=== PATIENT | female | born 1955 | race Caucasian/White ===

== ENCOUNTER 2019-01-15 14:20 | Inpatient (IN) | payer MEDICARE, OTHER | END 2019-01-18 13:40 | disposition other institution (70) | LOC: ER 14:20 → 4TH 18:00 | DX: A41.9 Sepsis, unspecified organism (principal); N13.6 Pyonephrosis; I16.0 Hypertensive urgency; J96.01 Acute respiratory failure with hypoxia; G47.33 Obstructive sleep apnea (adult) (pediatric); Z68.43 Body mass index [BMI] 50.0-59.9, adult; E66.01 Morbid (severe) obesity due to excess calories; R35.0 Frequency of micturition; J44.9 Chronic obstructive pulmonary disease, unspecified; F17.210 Nicotine dependence, cigarettes, uncomplicated; I89.0 Lymphedema, not elsewhere classified; I49.3 Ventricular premature depolarization; I45.10 Unspecified right bundle-branch block ==

== ENCOUNTER 2019-02-02 15:19 | Inpatient (IN) | payer MEDICARE ==
[~2019-02-02] VITALS: Ht 170 cm; Wt 161.9 kg
[~2019-02-02 15:19] MED LIST: ASPI-983 PO; CEFD300C3 PO; LISI-552 PO; NAPR220T66 PO
--- NOTE | 2019-02-02 15:41 | ED GI ---
General Chief Complaint: Rect Problems Stated Complaint: RECTAL BLEEDING Nursing Triage Note: Patient reports bright red blood coming from rectum starting this morning. Sepsis Screen: No Definite Risk Source of Information: Patient Exam Limitations: No Limitations History of Present Illness Date Seen by Provider: Feb 02, 2019 Time Seen by Provider: 15:36 Initial Comments To ER by private vehicle with reports of bright red blood per rectum onset this morning. She had a formed soft bowel movement that had some blood on it. Since then she's been passing large amounts of bright red blood clots per rectum. She denies pain She was here recently () for ureteral stone/obstruction, still has a ureteral stent in place. She is tachycardic on arrival at [facility] but not hypotensive. Last hemoglobin on 01/18/19 was 13.6. She just moved here from [place] and does not have a local physician. She is not on anticoagulants. She just finished Omnicef yesterday for the pyelonephritis but denies any diarrhea or abdominal cramping. Timing/Duration: 1-3 Hours Severity/Quality: Moderate Radiation: No Radiation Activities at Onset: None Allergies and Home Medications Allergies Coded Allergies: No Known Drug Allergies (Unverified , 01/15/19) Home Medications Aspirin 81 Mg Tablet.dr, 81 MG PO DAILY, (Reported) Cefdinir 300 Mg Capsule, 300 MG PO BID Prescribed by: ANITA MARCIAL on 01/18/19 1211 Lisinopril 20 Mg Tablet, 20 MG PO DAILY@0900 Prescribed by: ANITA MARCIAL on 01/18/19 1328 Naproxen Sodium 220 Mg Tablet, 880 MG PO Q48H, (Reported) TAKES 4 (220MG) TABLETS Patient Home Medication List Home Medication List Reviewed: Yes Review of Systems Review of Systems Constitutional: see HPI; No chills, No fever, No weakness EENTM: No Symptoms Reported Respiratory: No Symptoms Reported Cardiovascular: No Symptoms Reported Gastrointestinal: See HPI, Rectal Bleeding Genitourinary: No Symptoms Reported Musculoskeletal: no symptoms reported Skin: no symptoms reported Psychiatric/Neurological: No Symptoms Reported Endocrine: No Symptoms Reported Hematologic/Lymphatic: No Symptoms Reported Past Kqfudgc-Jgyxyz-Tosgid Hx Patient Social History Alcohol Use: Denies Use Recreational Drug Use: No Type Used: Cigarettes Recent Foreign Travel: No Contact w/Someone Who Travel: No Recent Infectious Disease Expo: No Recent Hopitalizations: No Seasonal Allergies Seasonal Allergies: No Past Medical History Surgeries: No COPD Cardiac: Yes Hypertension Neurological: No Genitourinary: No Gastrointestinal: No Endocrine: No Cancer: No Psychosocial: No Integumentary: Yes (LYMPHADEMA) Family Medical History Alzheimer's disease 19 MOTHER GRANDMOTHER Cardiovascular disease 19 FATHER Diabetes mellitus G8 SISTER Hypertension 19 FATHER G8 BROTHER Myocardial infarction G8 BROTHER Neoplasm AUNT GRANDMOTHER No Pertinent Family Hx Physical Exam Vital Signs Vital Signs - First Documented 02/02/19 15:29 Temp 37.2 Pulse 122 Resp 18 B/P (MAP) 189/93 (125) Capillary Refill : Less Than 3 Seconds Height/Weight/BMI Height: 5'6.00" Weight: 352lbs. 0.0oz. 159.419379ev; 55.00 BMI Method:Estimated General Appearance: WD/WN, no apparent distress, obese HEENT: PERRL/EOMI, normal ENT inspection Respiratory: no respiratory distress, no accessory muscle use Gastrointestinal: normal bowel sounds, soft, other (bright red blood with clots in her brief, no external source of bleeding seen on rectal exam) Extremities: normal range of motion, non-tender Neurologic/Psychiatric: alert, normal mood/affect, oriented x 3 Skin: normal color, warm/dry Progress/Results/Core Measures Results/Orders Lab Results Laboratory Tests Test 02/02/19 15:38 Range/Units White Blood Count 10.5 4.3-11.0 10^3/uL Red Blood Count 4.32 L 4.35-5.85 10^6/uL Hemoglobin 13.0 11.5-16.0 G/DL Hematocrit 40 35-52 % Mean Corpuscular Volume 92 80-99 FL Mean Corpuscular Hemoglobin 30 25-34 PG Mean Corpuscular Hemoglobin Concent 33 32-36 G/DL Red Cell Distribution Width 16.4 H 10.0-14.5 % Platelet Count 278 130-400 10^3/uL Mean Platelet Volume 11.2 H 7.4-10.4 FL Neutrophils (%) (Auto) 77 H 42-75 % Lymphocytes (%) (Auto) 14 12-44 % Monocytes (%) (Auto) 6 0-12 % Eosinophils (%) (Auto) 2 0-10 % Basophils (%) (Auto) 1 0-10 % Neutrophils # (Auto) 8.1 H 1.8-7.8 X 10^3 Lymphocytes # (Auto) 1.5 1.0-4.0 X 10^3 Monocytes # (Auto) 0.7 0.0-1.0 X 10^3 Eosinophils # (Auto) 0.2 0.0-0.3 10^3/uL Basophils # (Auto) 0.1 0.0-0.1 10^3/uL Prothrombin Time 13.3 12.2-14.7 SEC INR Comment 1.0 0.8-1.4 Activated Partial Thromboplast Time 28 24-35 SEC Sodium Level 139 135-145 MMOL/L Potassium Level 3.8 3.6-5.0 MMOL/L Chloride Level 107 98-107 MMOL/L Carbon Dioxide Level 22 21-32 MMOL/L Anion Gap 10 5-14 MMOL/L Blood Urea Nitrogen 18 7-18 MG/DL Creatinine 0.74 0.60-1.30 MG/DL Estimat Glomerular Filtration Rate > 60 BUN/Creatinine Ratio 24 Glucose Level 108 H 70-105 MG/DL Calcium Level 8.9 8.5-10.1 MG/DL Corrected Calcium 9.5 8.5-10.1 MG/DL Total Bilirubin 0.4 0.1-1.0 MG/DL Aspartate Amino Transf (AST/SGOT) 20 5-34 U/L Alanine Aminotransferase (ALT/SGPT) 24 0-55 U/L Alkaline Phosphatase 69 40-136 U/L Total Protein 6.5 6.4-8.2 GM/DL Albumin 3.2 3.2-4.5 GM/DL My Orders Orders - FABIANO HI LABORER PETROLE[employer] REFINERY Cbc With Automated Diff (02/02/19 15:34) Comprehensive Metabolic Panel (02/02/19 15:34) Ed Iv/Invasive Line Start (02/02/19 15:34) Protime With Inr (02/02/19 15:34) Partial Thromboplastin Time (02/02/19 15:34) Red Cells Leukocytes Reduced (02/02/19 15:34) Type And Screen (02/02/19 15:34) Ct Abdomen/Pelvis W (02/02/19 15:54) Iohexol Injection (Omnipaque 350 Mg/Ml 1 (02/02/19 16:45) Received Contrast (Hold Metformin- Contr (02/02/19 16:45) Ns (Ivpb) (Sodium Chloride 0.9% Ivpb Bag (02/02/19 16:45) Medications Given in ED Current Medications Medications Dose Ordered Sig/Zhang Route Start Time Stop Time Status Last Admin Dose Admin Iohexol 100 ml ONCE ONCE IV 02/02/19 16:45 02/02/19 16:46 DC 02/02/19 16:40 100 ML Sodium Chloride 100 ml ONCE ONCE IV 02/02/19 16:45 02/02/19 16:46 DC 02/02/19 16:40 80 ML Vital Signs/I&O 02/02/19 15:29 Temp 37.2 Pulse 122 Resp 18 B/P (MAP) 189/93 (125) Blood Pressure Mean: 125 Departure Communication (Admissions) Time/Spoke to Admitting Phy: 17:[address] Marcial, who agrees to admit, hydralazine 10 mg IV every 8 hours when necessary systolic pressure greater than 180. We'll check stools for C. difficile since she is just finishing antibiotics. Consult Dr. Marquez. Hemoglobin is stable, blood pressure is stable, however this is only minimally going on for about 2-3 hours, the volume of bleeding seems to be increasing, she had a large passage of blood per rectum onto the floor in her room, lots of clot, an impressive amount of bleeding. She is crossmatched for 3 units of blood. She still denies pain. Alert and oriented. Spoke with Dr. Marquez, tentative plan for colonoscopy tomorrow morning at 9 AM after 2 bottles of magnesium citrate today Impression Primary Impression: Lower GI hemorrhage Disposition: ADMITTED INPATIENT Condition: Stable Admissions Decision to Admit Reason: Admit from ER (General) Decision to Admit/Date: Feb 02, 2019 Time/Decision to Admit Time: 17:20 Departure-Patient Inst. Referrals: NO,LOCAL PHYSICIAN (PCP/Family) Primary Care Physician FABIANO HI APRN Feb 02, 2019 15:41
[2019-02-02 16:09] LABS: BASOPHILS # (AUTO) 0.1 10^3/uL (0.0-0.1); BASOPHILS % (AUTO) 1 % (0-10); EOSINOPHILS # (AUTO) 0.2 10^3/uL (0.0-0.3); EOSINOPHILS % (AUTO) 2 % (0-10); HEMATOCRIT 40 % (35-52); LYMPHOCYTES # (AUTO) 1.5 X 10^3 (1.0-4.0); LYMPHOCYTES % (AUTO) 14 % (12-44); MEAN CORPUSCULAR HEMOGLOBIN 30 PG (25-34); MEAN CORPUSCULAR HGB CONC 33 G/DL (32-36); MEAN CORPUSCULAR VOLUME 92 FL (80-99); MEAN PLATELET VOLUME 11.2 FL (7.4-10.4); MONOCYTES # (AUTO) 0.7 X 10^3 (0.0-1.0); MONOCYTES % (AUTO) 6 % (0-12); NEUTROPHILS # (AUTO) 8.1 X 10^3 (1.8-7.8); NEUTROPHILS % (AUTO) 77 % (42-75); PLATELET COUNT 278 10^3/uL (130-400); RED CELL DISTRIBUTION WIDTH 16.4 % (10.0-14.5); WHITE BLOOD COUNT 10.5 10^3/uL (4.3-11.0)
[2019-02-02 16:26] LABS: PROTHROMBIN TIME PATIENT 13.3 SEC (12.2-14.7)
[2019-02-02 16:36] LABS: ALANINE AMINOTRANSFERASE 24 U/L (0-55); ALBUMIN 3.2 GM/DL (3.2-4.5); ALKALINE PHOSPHATASE 69 U/L (40-136); BILIRUBIN,TOTAL 0.4 MG/DL (0.1-1.0); BUN/CREATININE RATIO 24; CALCIUM 8.9 MG/DL (8.5-10.1); CARBON DIOXIDE 22 MMOL/L (21-32); CHLORIDE 107 MMOL/L (98-107); CREATININE SERUM 0.74 MG/DL (0.60-1.30); GFR ESTIMATED > 60; GLUCOSE 108 MG/DL (70-105); POTASSIUM 3.8 MMOL/L (3.6-5.0); SODIUM 139 MMOL/L (135-145); TOTAL PROTEIN 6.5 GM/DL (6.4-8.2)
[2019-02-02] MEDS ORDERED: NS 100 ML (IVPB) BAG IV ONE (16:45)
[2019-02-02] MEDS ORDERED: IOHEXOL 350 MG/ML 100 ML (OMNIPAQUE 350) VIAL IV ONE (16:45)
[2019-02-02] MEDS ORDERED: HOLD METFORMIN - RECEIVED CONTRAST 20 ML VIAL IV SCH (16:45)
--- NOTE | 2019-02-02 16:56 | Diagnostic Imaging Report ---
PROCEDURE: CT abdomen and pelvis with contrast. TECHNIQUE: Multiple contiguous axial images were obtained through the abdomen and pelvis after administration of intravenous contrast. Auto Exposure Controls were utilized during the CT exam to meet ALARA standards for radiation dose reduction. INDICATION: Rectal bleeding. COMPARISON: 01/15/2019 FINDINGS: Mild bibasilar atelectasis. Tiny hiatal hernia. The liver and spleen are unremarkable. Nonobstructing right renal calculi are again identified, stable from prior examination. The right kidney and right ureter are otherwise unremarkable. A left ureteral stent is now in place with the distal tip extending into the urinary bladder with the proximal aspect coiled within the superior pole of the left kidney. 1.5 cm calculus within the left renal pelvis is again identified. Multiple additional left renal calculi are also present. There is, however, no evidence of hydroureteronephrosis with the left ureteral stent in place. Mild scattered vascular calcifications without aneurysmal dilatation of the abdominal aorta. Stable 2.5 cm left adrenal gland nodule. The right adrenal gland is unremarkable. The gallbladder is unremarkable. Diastases of the rectus abdominal musculature. Gas is present within the urinary bladder. The urinary bladder is predominantly decompressed. The uterus and adnexal structures are unremarkable. Mild colonic diverticulosis without CT evidence of diverticulitis. Appendix is unremarkable. No bowel obstruction or pneumatosis. Mildly prominent lymph node within the anterior right thigh, stable from the prior examination. No new adenopathy. No free air or free fluid. Stable appearance of the left hip with presumed chronic proximal left femoral fracture with resulting severe end-stage degenerative changes of the left hip. No acute osseous abnormality with scattered osseous degenerative changes. IMPRESSION: Left-sided ureteral stent is in place without evidence of hydroureteronephrosis. Bilateral renal calculi are again identified. Gas within urinary bladder. This may simply relate to recent instrumentation, though gas-forming organism could be considered. Recommend correlation with urinary analysis. Stable appearance of the left hip with resulting severe end-stage degenerative changes. Stable left adrenal gland nodule, which is indeterminate, though may relate to an adenoma. Comparison to prior imaging would be beneficial. If no prior imaging is available, a followup CT of the abdomen without contrast would be recommended in 3-6 months. Additional stable findings as above. Dictated by: Dictated on workstation # [id number]
[2019-02-02] MEDS ORDERED: hydrALAZINE (APESOLINE) 20 MG/ML VIAL IV ONE (17:30)
[2019-02-02 18:43] VITALS: BP 136/90
[2019-02-02] MEDS ORDERED: ONDANSETRON 4 MG/2 ML (SDV) Z0FRAN IVP PRN (19:00)
[2019-02-02] MEDS ORDERED: MAGNESIUM CITRATE 300 ML BTL PO ONE (19:00)
[2019-02-02] MEDS ORDERED: hydrALAZINE (APESOLINE) 20 MG/ML VIAL IV PRN (19:00)
[2019-02-02 19:15] VITALS: BP 151/76
[2019-02-02] MEDS: NS IV 1000 ML 1,000 ML IV SCH (19:31)
[2019-02-02 20:00] VITALS: BP 153/91
[2019-02-02 21:00] VITALS: BP 146/74
--- NOTE | 2019-02-02 21:35 | CONSULTATION REPORT ---
DATE OF SERVICE: HISTORY OF PRESENT ILLNESS: The patient is a 63-year-old female, who presented to the Emergency Department with rectal bleeding. She reports that this morning she had normal formed stools; however, this was followed by red clots of blood. She states that she has not had this before in the past. Upon presentation to the Emergency Department, she did have several more episodes of clotted red blood per rectum. She does not report any abdominal pain and does not report any major issues with diarrhea nor constipation. She also does not report any nausea nor vomiting. Her hemoglobin is stable. She does have a history of nephrolithiasis as well as pyelonephritis and has been on antibiotics on an intermittent basis for this. A CT scan was performed, which did show a small left adrenal incidentaloma 2.5 cm in size, which appears to be nonfunctional. She also was found to have diverticulosis. There were no inflammatory changes of the gastrointestinal tract. She does not report any family history of colon cancer. PAST MEDICAL HISTORY: Hypertension, COPD, nephrolithiasis, pyelonephritis, bilateral lower extremity edema. PAST SURGICAL HISTORY: None. ALLERGIES: No known drug allergies. MEDICATIONS: Aspirin 81 mg daily, cefdinir 300 mg b.i.d., lisinopril 20 mg daily, naproxen p.r.n. SOCIAL HISTORY: Positive smoke, negative alcohol. FAMILY HISTORY: Father, hypertension. Brother, myocardial infarction. Sister, diabetes. VITAL SIGNS: Temperature 37.2, pulse 105, blood pressure 153/91, respirations 25, pulse ox 96% on room air. REVIEW OF SYSTEMS: Well-nourished female, currently in no acute distress. She is not experiencing any shortness of breath and difficulty in breathing. No chest pain, palpitations, or diaphoresis. No nausea, vomiting with formed stools earlier today, which was followed by several episodes of clotted red blood per rectum. No abdominal pain, no fever, no chills. No recent inadvertent weight loss. All other review of systems negative. PHYSICAL EXAMINATION: CHEST: Distant breath sounds bilaterally with few scattered rales. HEART: Regular, no murmurs. EXTREMITIES: A+2/3 bilateral lower extremity edema, negative Homans sign. HEENT: No scleral icterus. NECK: No cervical lymphadenopathy. ABDOMEN: Soft, nontender, nondistended. No palpable masses. No hernias. SKIN: Warm, dry. LABORATORY DATA: WBC 10.5, hemoglobin 13.0, hematocrit 40, platelets 278, BUN 18, creatinine 0.74. Liver function enzymes are normal. ASSESSMENT AND PLAN: A 63-year-old female with rectal bleeding. This may be due to internal hemorrhoids as well as the possibility of a diverticular bleed. She also does not report any signs of colitis, which would normally present with crampy abdominal pain as well as diarrhea; however, she has been on antibiotics numerous times for pyelonephritis as well as nephrolithiasis. We cannot rule out the possibility of some form of colitis including bacterial overgrowth as well as an ischemic colitis. We will proceed with a colonoscopy as well as biopsies as appropriate on this admission. Job ID: [id number] DocumentID: [id number] Dictated Date: 02/02/2019 21:03:18 Electric Motor Control Assembler Date: 02/02/2019 21:34:28 Dictated By: BERONICA LOYD MD MTDD
[2019-02-02 22:00] VITALS: BP 113/76
[2019-02-03] VITALS (21 sets, daily range): BP systolic 125–187; BP diastolic 61–94
[2019-02-03 03:27] LABS: BASOPHILS # (AUTO) 0.1 10^3/uL (0.0-0.1); BASOPHILS % (AUTO) 1 % (0-10); EOSINOPHILS # (AUTO) 0.3 10^3/uL (0.0-0.3); EOSINOPHILS % (AUTO) 3 % (0-10); HEMATOCRIT 38 % (35-52); HEMOGLOBIN 12.1 G/DL (11.5-16.0); LYMPHOCYTES # (AUTO) 1.6 X 10^3 (1.0-4.0); LYMPHOCYTES % (AUTO) 15 % (12-44); MEAN CORPUSCULAR HEMOGLOBIN 30 PG (25-34); MEAN CORPUSCULAR HGB CONC 32 G/DL (32-36); MEAN CORPUSCULAR VOLUME 93 FL (80-99); MEAN PLATELET VOLUME 11.2 FL (7.4-10.4); MONOCYTES # (AUTO) 0.7 X 10^3 (0.0-1.0); MONOCYTES % (AUTO) 7 % (0-12); NEUTROPHILS % (AUTO) 74 % (42-75); PLATELET COUNT 299 10^3/uL (130-400); RED CELL DISTRIBUTION WIDTH 16.6 % (10.0-14.5); WHITE BLOOD COUNT 10.8 10^3/uL (4.3-11.0)
[2019-02-03 04:01] LABS: BUN/CREATININE RATIO 20; CALCIUM 8.8 MG/DL (8.5-10.1); CARBON DIOXIDE 25 MMOL/L (21-32); CHLORIDE 107 MMOL/L (98-107); CREATININE SERUM 0.64 MG/DL (0.60-1.30); GFR ESTIMATED > 60; GLUCOSE 99 MG/DL (70-105); MAGNESIUM 2.3 MG/DL (1.6-2.4); PHOSPHORUS 2.9 MG/DL (2.3-4.7); POTASSIUM 3.8 MMOL/L (3.6-5.0); SODIUM 139 MMOL/L (135-145)
[2019-02-03] MEDS ORDERED: POTASSIUM CL 10MEQ/50ML IVPB 50 ML IV SCH (06:00)
[2019-02-03] MEDS ORDERED: KCL 20 MEQ TAB (K-DUR) PO SCH (06:00)
[2019-02-03] MEDS ORDERED: MAGNESIUM 1 GM/100 ML IVPB 100 ML IV SCH (06:00)
[2019-02-03] MEDS: NS IV 1000 ML 1,000 ML IV SCH (06:10)
--- NOTE | 2019-02-03 06:48 | Pulmonary Consultation ---
History of Present Illness History of Present Illness Date of Consultation 02/03/19 06:46 Date of Admission Allergies and Home Medications Allergies Coded Allergies: No Known Drug Allergies (Unverified , 01/15/19) Home Medications Aspirin 81 Mg Tablet.dr, 81 MG PO DAILY, (Reported) Cefdinir 300 Mg Capsule, 300 MG PO BID Prescribed by: ANITA MARCIAL on 01/18/19 1211 Lisinopril 20 Mg Tablet, 20 MG PO DAILY@0900 Prescribed by: ANITA MARCIAL on 01/18/19 1328 Naproxen Sodium 220 Mg Tablet, 880 MG PO Q48H, (Reported) TAKES 4 (220MG) TABLETS Past Ervrqkc-Mvdhui-Vnydnj Hx Patient Social History Alcohol Use: Denies Use Recreational Drug Use: No Type Used: Cigarettes Recent Foreign Travel: No Contact w/Someone Who Travel: No Recent Infectious Disease Expo: No Recent Hopitalizations: No Physical Abuse: No Sexual Abuse: No Seasonal Allergies Seasonal Allergies: No Past Medical History Surgeries: No COPD Cardiac: Yes Hypertension Neurological: No Genitourinary: No Gastrointestinal: No Endocrine: No Cancer: No Psychosocial: No Integumentary: Yes (LYMPHADEMA) Family Medical History Alzheimer's disease 19 MOTHER GRANDMOTHER Cardiovascular disease 19 FATHER Diabetes mellitus G8 SISTER Hypertension 19 FATHER G8 BROTHER Myocardial infarction G8 BROTHER Neoplasm AUNT GRANDMOTHER No Pertinent Family Hx Sepsis Event Evaluation Height, Weight, BMI Height: 5'6.00" Weight: 350lbs. 9.0oz. 159.052650dk; 56.29 BMI Method:Estimated Exam Exam Vital Signs Date Time Temp Pulse Resp B/P (MAP) Pulse Ox O2 Delivery O2 Flow Rate FiO2 02/03/19 06:00 93 18 158/78 (104) 98 Room Air 02/03/19 05:00 80 15 145/94 (111) 96 Room Air 02/03/19 04:50 36.5 02/03/19 04:48 99 Room Air 02/03/19 04:00 93 16 168/75 (106) 98 Room Air 02/03/19 03:00 97 17 169/80 (109) 98 Room Air 02/03/19 02:00 97 18 175/91 (119) 97 Room Air 02/03/19 01:00 92 15 166/92 (116) 96 Room Air 02/03/19 01:00 91 02/03/19 00:50 99 Room Air 02/03/19 00:20 37.0 02/03/19 00:00 109 21 143/74 (97) 98 Room Air 02/02/19 23:00 118 12 98 Room Air 02/02/19 22:00 95 20 113/76 (88) 97 Room Air 02/02/19 21:00 102 15 146/74 (98) 99 Room Air 02/02/19 20:45 99 Room Air 02/02/19 20:00 105 25 153/91 (111) 96 Room Air 02/02/19 19:32 95 Room Air 02/02/19 19:15 118 18 151/76 (101) 98 Room Air 02/02/19 18:43 103 27 136/90 (105) 97 Room Air 02/02/19 18:40 101 02/02/19 18:02 37.2 101 18 145/77 (125) 98 02/02/19 15:29 37.2 122 18 189/93 (125) I & O 02/03/19 07:00 Intake Total 300 ml Balance 300 ml Height & Weight Height: 5'6.00" Weight: 350lbs. 9.0oz. 159.810809rk; 56.29 BMI Method:Estimated Capillary Refill: Less Than 3 Seconds Gastrointestinal: normal bowel sounds, soft, other (bright red blood with clots in her brief, no external source of bleeding seen on rectal exam) Results Lab Laboratory Tests 02/02/19 15:38 02/02/19 22:10 02/03/19 03:14 Assessment/Plan Assessment/Plan Rectal bleeding -Monitor H&H -surgery following -plan is for colonoscopy Nephrolithiasis with stent in place LIDIA MISHRA DO Feb 03, 2019 06:48
--- NOTE | 2019-02-03 08:45 | NUR ---
Endo nurse here to take pt to colonoscopy per wheelchair. Pt will go to room 417 when done with colonoscopy.
[2019-02-03] MEDS ORDERED: MIDAZOLAM 2 MG/2 ML (VERSED) VIAL ONE ×3 (09:25)
[2019-02-03] MEDS ORDERED: NS IV 500 ML 500 ML ONE (09:25)
[2019-02-03] MEDS ORDERED: fentaNYL INJECTION 100 MCG/2 ML AMP ONE (09:25)
[2019-02-03] MEDS ORDERED: ONDANSETRON 4 MG (ZOFRAN) ORAL DISSOLVE TAB PO PRN (09:45)
[2019-02-03] MEDS ORDERED: ACETAMINOPHEN 325 MG TABLET PO PRN (09:45)
[2019-02-03] MEDS ORDERED: POLYETHYLENE GLYCOL 17 GM (MIRALAX) PACK PO PRN (09:45)
[2019-02-03] MEDS ORDERED: MELATONIN 3 MG TABLET PO PRN (09:45)
[2019-02-03] MEDS ORDERED: hydrALAZINE (APESOLINE) 20 MG/ML VIAL IV PRN (09:45)
[2019-02-03] MEDS ORDERED: diphenhydrAMINE 25 MG TAB (BENADRYL) PO PRN (09:45)
[2019-02-03] MEDS ORDERED: LIDOCAINE JELLY 2% 6 ML SYRINGE ONE (09:49)
[2019-02-03] MEDS ORDERED: proPOfol 200 MG/20 ML (DIPRIVAN) VIAL IV ONE ×2 (09:58→10:35)
[2019-02-03] MEDS ORDERED: MIDAZOLAM 2 MG/2 ML (VERSED) VIAL IVP ONE (10:00)
[2019-02-03] MEDS ORDERED: LIDOCAINE JELLY 2% 6 ML SYRINGE MM PRN (10:00)
[2019-02-03] MEDS ORDERED: NS IV 500 ML 500 ML IV ONE (10:00)
[2019-02-03] MEDS ORDERED: fentaNYL INJECTION 100 MCG/2 ML AMP IVP ONE (10:00)
--- NOTE | 2019-02-03 10:55 | Anesthesia-General Post-Op ---
MAC Patient Condition Mental Status/LOC: Same as Preop Cardiovascular: Satisfactory Nausea/Vomiting: Absent Respiratory: Satisfactory Pain: Controlled Complications: Absent Post Op Complications Complications None Follow Up Care/Instructions Patient Instructions None needed. Anesthesiology Discharge Order Discharge Order Patient is doing well, no complaints, stable vital signs, no apparent adverse anesthesia problems. No complications reported per nursing. TOO BALDWIN CRNA Feb 03, 2019 10:55
--- NOTE | 2019-02-03 10:57 | Progress Note-Pre Operative ---
Pre-Operative Progress Note H&P Reviewed The H&P was reviewed, patient examined and no changes noted. Date Seen by Provider: Feb 03, 2019 Time Seen by Provider: 09:00 Date H&P Reviewed: Feb 03, 2019 Time H&P Reviewed: 09:00 Pre-Operative Diagnosis: rectal bleed BERONICA LOYD MD Feb 03, 2019 10:57
--- NOTE | 2019-02-03 11:01 | Progress Note-Post Operative ---
Post-Operative Progess Note Surgeon (s)/[place] (s) Surgeon BERONICA LOYD MD [place]: none Pre-Operative Diagnosis rectal bleed Post-Operative Diagnosis chronic stage 2 ext and int hemorrhoids, moderate-severe sigmoid diverticulosis with previous bleed. Procedure & Operative Findings Date of Procedure 02/03/19 Procedure Performed/Findings colonoscopy Anesthesia Type mac Estimated Blood Loss Estimated blood loss (mL): minimal Specimens/Packing Specimens Removed none BERONICA LOYD MD Feb 03, 2019 11:01
--- NOTE | 2019-02-03 11:05 | NUR ---
RECEIVED FROM ENDO, REPORT RECEIVED FROM JOSELITO FIGUEREDO, PATIENT ALERT, IV SITE WITHOUT REDNESS OR SWELLING, UP IN CHAIR, FAMILY AT BEDSIDE, DEPENDS CHANGED, SEVERAL BLOOD CLOTS IN THE DEPENDS, DR LOYD INFORMED.
--- NOTE | 2019-02-03 11:22 | History & Physical-Hospitalist ---
History of Present Illness HPI/Chief Complaint Karli Solorio is a 63-year-old female with recent hospitalization due to urinary tract infection and nephrolithiasis and stent placement who presented with rectal bleeding. She reports that the bleeding started in yesterday and a she had a couple episodes before coming into the hospital. She is says that the bleeding has improved at this point. She denies any abdominal pain, nausea, or vomiting. She denies any fevers or chills. She denies any chest pain or shortness of breath. She has not had any ongoing dysuria. She denies any flank pain. She denies ever having any rectal bleeding before. She did not feel lightheaded or dizzy. Source: patient Exam Limitations: no limitations Date Seen 02/03/19 Time Seen by a Provider: 08:30 Attending Physician Mariam Marcial MD PCP No,Local Physician Referring Physician Date of Admission Feb 02, 2019 at 17:09 Home Medications & Allergies Home Medications Reviewed patient Home Medication Reconciliation performed by pharmacy medication reconciliations semiconductor lab technician and/or nursing. Patients Allergies have been reviewed. Allergies Allergies Coded Allergies No Known Drug Allergies (Unverified01/15/19) Past Nybubab-Itybrg-Xwcpeg Hx Past Med/Social Hx: Reviewed Nursing Past Med/Soc Hx Patient Social History Alcohol Use: Denies Use Recreational Drug Use: No Type Used: Cigarettes Recent Foreign Travel: No Contact w/other who traveled: No Recent Hopitalizations: No Recent Infectious Disease Expo: No Seasonal Allergies Seasonal Allergies: No Past Medical History Cardiac: Hypertension Family History Alzheimer's disease 19 MOTHER GRANDMOTHER Cardiovascular disease 19 FATHER Diabetes mellitus G8 SISTER Hypertension 19 FATHER G8 BROTHER Myocardial infarction G8 BROTHER Neoplasm AUNT GRANDMOTHER No Pertinent Family Hx Review of Systems Constitutional: no symptoms reported EENTM: no symptoms reported Respiratory: no symptoms reported Cardiovascular: no symptoms reported Gastrointestinal: No abdominal pain, No hematemesis, No melena, No nausea, No vomiting; other (Hematochezia) Genitourinary: no symptoms reported Musculoskeletal: no symptoms reported Skin: no symptoms reported Psychiatric/Neurological: No Symptoms Reported Physical Exam Physical Exam Vital Signs Vital Signs - First Documented 02/02/19 02/02/19 02/02/19 02/03/19 15:29 18:02 18:43 09:36 Temp 37.2 Pulse 122 Resp 18 B/P (MAP) 189/93 (125) Pulse Ox 98 O2 Delivery Room Air O2 Flow Rate 8 Capillary Refill : Less Than 3 Seconds Height, Weight, BMI Height: 5'6.00" Weight: 350lbs. 9.0oz. 159.785319uw; 56.29 BMI Method:Estimated General Appearance: No Apparent Distress, WD/WN, Obese HEENT: PERRL/EOMI, Pharynx Normal Neck: Normal Inspection, Supple Respiratory: Lungs Clear, Normal Breath Sounds, No Respiratory Distress Cardiovascular: Regular Rate, Rhythm, No Edema, No Murmur Gastrointestinal: Normal Bowel Sounds, Non Tender, Soft Back: No CVA Tenderness Extremity: Normal Inspection, Non Tender Neurologic/Psychiatric: Alert, Oriented x3, No Motor/Sensory Deficits, Normal Mood/Affect Skin: Normal Color, Warm/Dry Lymphatic: No Adenopathy Results Results/Procedures Labs Laboratory Tests 02/02/19 15:38 02/02/19 22:10 02/03/19 03:14 Patient resulted labs reviewed. Imaging: Reviewed Imaging Report Assessment/Plan Admission Diagnosis Bright red blood per rectum Admission Status: Inpatient Order (span 2 midnights) Reason for Inpatient Admission: Diverticulosis Hypertension Nephrolithiasis Assessment and Plan Bright red blood per rectum Diverticulosis Internal and external hemorrhoids No ongoing bleeding since admission Hemoglobin at baseline on admission, stable Type and screen ordered CT abdomen showing diverticulosis Gen. surgery consulted for endoscopy Endoscopy revealed diverticular bleed and hemorrhoids Continue to monitor for ongoing bleeding Nephrolithiasis Left ureteral stent in place No hydronephrosis Hypertension BP well-controlled Hold home meds at this time Morbid obesity Clinically significant, in no acute management needs Adrenal nodule Recommend follow-up as outpatient Diagnosis/Problems Diagnosis/Problems (1) Acute lower GI bleeding Status: Acute (2) Diverticulosis of colon with hemorrhage Status: Acute (3) Internal and external hemorrhoids without complication Status: Chronic (4) Nephrolithiasis Status: Chronic (5) Adrenal incidentaloma Status: Chronic (6) Morbid obesity with BMI of 50.0-59.9, adult Status: Chronic (7) Hypertension Status: Chronic Qualifiers: Hypertension type: essential hypertension Qualified Codes: I10 - Essential (primary) hypertension Clinical Quality Measures DVT/VTE Risk/Contraindication: Risk Factor Score Per Nursin RFS Level Per Nursing on Admit: 4+=Very High MARIAM MARCIAL MD Feb 03, 2019 11:22
[2019-02-03] MEDS: DOCUSATE SODIUM 100 MG (COLACE) CAP PO SCH ×2 (11:38→23:08)
[2019-02-03] MEDS: SENNA W/DOCUSATE (SENOKOT S) TABLET PO SCH ×2 (11:38→23:08)
--- NOTE | 2019-02-03 14:15 | Diagnostic Imaging Report ---
INDICATION: Dyspnea. TECHNIQUE: Single view chest 3:13 a.m. CORRELATION STUDY: 01/15/2019 FINDINGS: Cardiac enlargement, stable. Vascular overall improved. Elevated right diaphragm. No definitive consolidating infiltrate. IMPRESSION: 1. Stable cardiac enlargement , vascular improved and less congested. Dictated by: Dictated on workstation # [id number]
--- NOTE | 2019-02-03 16:36 | OPERATIVE REPORT ---
DATE OF SERVICE: 02/03/2019 ADMITTING PHYSICIAN: Dr. Mariam Poon. PREOPERATIVE DIAGNOSIS: Rectal bleeding. POSTOPERATIVE DIAGNOSES: Chronic stage II external and internal hemorrhoids, moderate sigmoid diverticulosis with clotted blood within the descending colon; however, no active bleeding identified. Proximal to the splenic flexure, there was no blood. No polyps or any neoplasms identified. PROCEDURE: Colonoscopy. SURGEON: Beronica Loyd MD ANESTHESIA: Monitored anesthesia care. ESTIMATED BLOOD LOSS: Minimal. FINDINGS: Chronic stage II external and internal hemorrhoids, moderate sigmoid diverticulosis with clotted blood within the descending colon; however, no active bleeding identified. Proximal to the splenic flexure, there was no blood. No polyps or any neoplasms identified. DISPOSITION: The patient tolerated the procedure well. INDICATIONS: The patient is a 63-year-old female, who presented to the Emergency Department with rectal bleeding. This is her first episode and reports that she had a normal forms bowel movement; however, this was followed by rectal bleeding. She then presented to the Emergency Department due to this concern and then she did proceed to have a few other bowel movements with clotted blood. She has not had a colonoscopy up to this point in her life. She does not report any abdominal pain. She also does not report any family history of colon cancer. DESCRIPTION OF PROCEDURE: The patient was brought to the endoscopy suite, laid in the left lateral decubitus position. After adequate IV anesthesia and monitored anesthesia care, a digital rectal examination was performed, which revealed mild chronic stage II external and internal hemorrhoids, not actively edematous nor inflamed and no bleeding. The endoscope was then intubated to the anus and rectum gently insufflated. The endoscope was then advanced through the valves of Cummings of the rectum. There was old clotted blood within the rectum. No active bleeding. Through the sigmoid colon, there was a significant sigmoid diverticulosis as well as old clotted blood within the diverticula consistent with a previous bleed; however, no active bleeding. This was irrigated and suctioned as well as possible and there was no active bleeding identified. The endoscope was then advanced through the descending colon where this clotted blood was still identified; however, at the splenic flexure, there was a transition of no blood, most likely consistent with previous diverticular bleed, which had stopped on its own. The endoscope was then advanced to the remainder of the transverse, ascending colon to the cecum. These segments were normal. There were no polyps or any neoplasms identified throughout the colon or rectum. Endoscope was then slowly withdrawn while taking a second look and suctioning of residual air with no additional findings. The patient tolerated the procedure well. We will recommend medical management with at least 25 grams of fiber daily as well as significant amounts of water to promote soft stools on a daily basis. We will recommend that she proceed with a healthy eating habits and incorporating natural fiber; however, we would recommend a supplemental source as well to promote soft stools. She does not have a family history of colon cancers and no neoplasms were identified and she may wait another 10 years for her next colonoscopy; however, if she does become symptomatic she will need another colonoscopy. Job ID: [id number] DocumentID: [id number] Dictated Date: 02/03/2019 10:46:19 [employer] Checker Date: 02/03/2019 16:36:10 Dictated By: BERONICA LOYD MD
[2019-02-04] VITALS: BP 129/60
[2019-02-04 03:45] VITALS: BP 161/80
[2019-02-04 06:38] LABS: HEMATOCRIT 32 % (35-52); HEMOGLOBIN 10.1 G/DL (11.5-16.0); MEAN CORPUSCULAR HEMOGLOBIN 30 PG (25-34); MEAN CORPUSCULAR HGB CONC 32 G/DL (32-36); MEAN CORPUSCULAR VOLUME 94 FL (80-99); PLATELET COUNT 256 10^3/uL (130-400); RED CELL DISTRIBUTION WIDTH 16.4 % (10.0-14.5); WHITE BLOOD COUNT 8.5 10^3/uL (4.3-11.0)
[2019-02-04 06:39] LABS: BASOPHILS # (AUTO) 0.1 10^3/uL (0.0-0.1); BASOPHILS % (AUTO) 1 % (0-10); EOSINOPHILS # (AUTO) 0.3 10^3/uL (0.0-0.3); EOSINOPHILS % (AUTO) 4 % (0-10); LYMPHOCYTES # (AUTO) 1.8 X 10^3 (1.0-4.0); LYMPHOCYTES % (AUTO) 21 % (12-44); MEAN PLATELET VOLUME 11.5 FL (7.4-10.4); MONOCYTES # (AUTO) 0.7 X 10^3 (0.0-1.0); MONOCYTES % (AUTO) 8 % (0-12); NEUTROPHILS # (AUTO) 5.7 X 10^3 (1.8-7.8); NEUTROPHILS % (AUTO) 67 % (42-75)
[2019-02-04 06:55] LABS: BUN/CREATININE RATIO 20; CALCIUM 8.3 MG/DL (8.5-10.1); CARBON DIOXIDE 24 MMOL/L (21-32); CHLORIDE 109 MMOL/L (98-107); GFR ESTIMATED > 60; GLUCOSE 91 MG/DL (70-105); POTASSIUM 3.9 MMOL/L (3.6-5.0); SODIUM 141 MMOL/L (135-145)
--- NOTE | 2019-02-04 07:52 | Diagnostic Imaging Report ---
INDICATION: Dyspnea. EXAMINATION: Chest 02/04/2019. COMPARISON: 02/03/2019. FINDINGS: The heart is prominent. Pulmonary vasculature slightly congested. Findings of edema both lungs which may have worsened. There is atelectasis or infiltrate suspected at the left lung base. Small effusion is not excluded. IMPRESSION: 1. Slight interval worsening appearance of the chest with pulmonary vascular congestion and possible developing infiltrate at the left lung base. Dictated by: Dictated on workstation # [id number]
[2019-02-04 08:00] VITALS: BP 157/72
[2019-02-04] MEDS: DOCUSATE SODIUM 100 MG (COLACE) CAP PO SCH (08:46)
[2019-02-04] MEDS: SENNA W/DOCUSATE (SENOKOT S) TABLET PO SCH (08:46)
[2019-02-04] MEDS ORDERED: TURM500C4 PO (08:57)
[2019-02-04] MEDS ORDERED: LISI-552 PO (08:57)
--- NOTE | 2019-02-04 08:58 | NUR ---
SPOKE WITH PT WELL GOING THRU THE EXT MED HISTORY TO COMPLETE THE MED REC. OTC MEDS: ASPIRIN 81M DAILY ALEVE: UD TURMERIC: 1 DAILY
--- NOTE | 2019-02-04 11:51 | Discharge Inst-Simple/Standard ---
Discharge Inst-Standard Reconcile Patient Problems Problems Reviewed?: Yes Patient Instructions/Follow Up Plan of Care/Instructions/FU: Please continue to take y our medications as written. Please follow up with Dr Bee to establish care and follow upu wthis hospital stay. Activity as Tolerated: Yes Discharge Diet: Other Diet (High Fiber) Return to The Hospital For: Bright red or dark stools, shortness of breath, chest pain, if you feel you are getting worse. Planned Outpatient Orders/Ref. Pneu Vac Indicated: Yes BJ KAY MD Feb 04, 2019 11:50
--- NOTE | 2019-02-04 11:54 | Discharge Summary ---
Diagnosis/Chief Complaint Date of Admission Feb 02, 2019 at 17:09 Date of Discharge Discharge Date: Feb 04, 2019 Admission Diagnosis Bright red blood per rectum Primary Care No,Local Physician Discharge Diagnosis (1) Acute lower GI bleeding Status: Acute (2) Diverticulosis of colon with hemorrhage Status: Acute (3) Internal and external hemorrhoids without complication Status: Chronic (4) Nephrolithiasis Status: Chronic (5) Adrenal incidentaloma Status: Chronic (6) Morbid obesity with BMI of 50.0-59.9, adult Status: Chronic (7) Hypertension Status: Chronic Discharge Summary Procedures/Consulations Dr Marquez- Surgery Discharge Physical Exam Allergies: Coded Allergies: No Known Drug Allergies (Unverified , 01/15/19) Vitals & I&Os Vital Signs Date Time Temp Pulse Resp B/P (MAP) Pulse Ox O2 Delivery O2 Flow Rate FiO2 02/04/19 13:00 02/04/19 08:00 Room Air 02/04/19 08:00 37.4 98 16 94 02/03/19 10:40 8 General Appearance: No Apparent Distress, WD/WN Respiratory: Lungs Clear Cardiovascular: Regular Rate, Rhythm, No Murmur Gastrointestinal: Normal Bowel Sounds, Soft Neurologic/Psychiatric: Alert, Oriented x3 Hospital Course Pt was admitted due to lower GI Bleed. She underwent colonoscopy with Dr Marquez which revealed diverticulosis and evidence of diverticular bleed with clot noted. Her symptoms resolved and her hemoglobin stabilized. She did not need any blood products as her Hgb never dropped below 10. She was discharged home in stable condition to follow up with a primary care doctor. She plans to establish with Dr Khadra Bee. She is to see Dr Marquez as needed. Labs (last 24 hrs) Microbiology 02/02/19 C. difficile GDH Antigen & Toxins - Final, Complete 02/02/19 MRSA Screen - Final, Complete MRSA not isolated Patient resulted labs reviewed. Pending Labs Imaging: Reviewed Imaging Report Discussion & Recommendations Discharge Planning: >30 minutes discharge planning Discharge Home Medications: Active Scripts Active Reported Turmeric 500 mg Capsule (Turmeric/Turmeric Root Extract) 1 Each Capsule 1 Each PO DAILY Lisinopril 20 Mg Tablet 20 Mg PO DAILY Aleve (Naproxen Sodium) 220 Mg Tablet 880 Mg PO Q48H TAKES 4 (220MG) TABLETS Instructions to patient/family Please see electronic discharge instructions given to patient. Clinical Quality Measures DVT/VTE Risk/Contraindication: Risk Factor Score Per Nursin RFS Level Per Nursing on Admit: 4+=Very High Problem Qualifiers (1) Hypertension: Hypertension type: essential hypertension Qualified Codes: I10 - Essential (primary) hypertension BJ KAY MD Feb 04, 2019 11:54
== END 2019-02-04 14:10 | disposition home or self-care (01) | DRG 378 ==
LOC: EDUNIT# 15:19 → ER 15:19 → ICU 17:09 → 4TH 02-03 09:31
PROVIDERS: ADMIT Internal Medicine; ATTEND Internal Medicine
PROC: 0DJD8ZZ Inspection of Lower Intestinal Tract, Via Natural or Artificial Opening Endoscopic (ICD-10-PCS; principal; 2019-02-03 09:30)
DX: K57.31 Diverticulosis of large intestine without perforation or abscess with bleeding (principal); K64.1 Second degree hemorrhoids; D35.02 Benign neoplasm of left adrenal gland; J44.9 Chronic obstructive pulmonary disease, unspecified; I10 Essential (primary) hypertension; E66.01 Morbid (severe) obesity due to excess calories; Z68.43 Body mass index [BMI] 50.0-59.9, adult; F17.210 Nicotine dependence, cigarettes, uncomplicated; Z96.0 Presence of urogenital implants
CPT/HCPCS: 36415; 71045; 74177; 80048; 80053; 83735; 84100; 85014; 85018; 85025; 85610; 85730; 86850; 86900; 86901; 86920; 87081; 87324; 87449; 96374

== ENCOUNTER 2019-02-06 17:52 | Emergency (ER) | payer MEDICARE ==
[~2019-02-06] VITALS: Ht 167 cm; Wt 139.0 kg
[~2019-02-06 17:52] MED LIST changes: +TURM500C4 PO
[2019-02-06 18:38] LABS: BASOPHILS # (AUTO) 0.1 10^3/uL (0.0-0.1); BASOPHILS % (AUTO) 0 % (0-10); EOSINOPHILS # (AUTO) 0.1 10^3/uL (0.0-0.3); EOSINOPHILS % (AUTO) 1 % (0-10); HEMATOCRIT 36 % (35-52); HEMOGLOBIN 11.7 G/DL (11.5-16.0); LYMPHOCYTES # (AUTO) 1.6 X 10^3 (1.0-4.0); LYMPHOCYTES % (AUTO) 9 % (12-44); MEAN CORPUSCULAR HEMOGLOBIN 30 PG (25-34); MEAN CORPUSCULAR HGB CONC 32 G/DL (32-36); MEAN CORPUSCULAR VOLUME 94 FL (80-99); MEAN PLATELET VOLUME 10.9 FL (7.4-10.4); MONOCYTES % (AUTO) 6 % (0-12); NEUTROPHILS # (AUTO) 14.6 X 10^3 (1.8-7.8); NEUTROPHILS % (AUTO) 84 % (42-75); PLATELET COUNT 306 10^3/uL (130-400); RED CELL DISTRIBUTION WIDTH 16.5 % (10.0-14.5); WHITE BLOOD COUNT 17.4 10^3/uL (4.3-11.0)
[2019-02-06 18:39] LABS: BILIRUBIN,URINE NEGATIVE (NEGATIVE); CLARITY,URINE VERY CLOUDY; COLOR,URINE YELLOW; GLUCOSE, URINE (UA) NEGATIVE (NEGATIVE); KETONES,URINE 1+ (NEGATIVE); LEUKOCYTE ESTERASE ,URINE 3+ (NEGATIVE); NITRITE,URINE POSITIVE (NEGATIVE); PH,URINE 7 (5-9); PROTEIN,URINE 3+ (NEGATIVE); UROBILINOGEN,URINE NORMAL (NORMAL)
[2019-02-06 18:46] LABS: BACTERIA,URINE LARGE /HPF; RBC,URINE >100 /HPF; WBC,URINE TNTC /HPF
[2019-02-06 18:57] LABS: ALANINE AMINOTRANSFERASE 25 U/L (0-55); ALBUMIN 3.5 GM/DL (3.2-4.5); ALKALINE PHOSPHATASE 67 U/L (40-136); AMYLASE 27 U/L (25-125); BILIRUBIN,TOTAL 0.7 MG/DL (0.1-1.0); BUN/CREATININE RATIO 15; CALCIUM 9.1 MG/DL (8.5-10.1); CARBON DIOXIDE 25 MMOL/L (21-32); CHLORIDE 103 MMOL/L (98-107); CREATININE SERUM 0.73 MG/DL (0.60-1.30); GFR ESTIMATED > 60; GLUCOSE 116 MG/DL (70-105); LIPASE < 4 U/L (8-78); POTASSIUM 3.8 MMOL/L (3.6-5.0); SODIUM 137 MMOL/L (135-145); TOTAL PROTEIN 7.1 GM/DL (6.4-8.2)
[2019-02-06 19:00] LABS: PROTHROMBIN TIME PATIENT 13.5 SEC (12.2-14.7)
--- NOTE | 2019-02-06 19:03 | NUR ---
REPORT TO LILA FIGUEREDO
[2019-02-06 19:14] LABS: ANISOCYTOSIS SLIGHT; BAND NEUTROPHILS 3 %; EOSINOPHILS % (MANUAL) 1 %; LYMPHOCYTES % (MANUAL) 8 %; MICROCYTOSIS SLIGHT; MONOCYTES % (MANUAL) 4 %; NEUTROPHILS % (MANUAL) 84 %; POIKILOCYTOSIS SLIGHT; SPHEROCYTES SLIGHT
[2019-02-06] MEDS ORDERED: cefTRIAXone FOR IV USE 1,000 MG in WATER (STERILE) FOR INJECTION 10 ML IV ONE (19:30)
--- NOTE | 2019-02-06 19:30 | Diagnostic Imaging Report ---
INDICATION: Wheezing COMPARISON: 02/04/2019 FINDINGS: Single view of the chest demonstrates cardiac enlargement with slight central vascular congestion. There is no pneumothorax or effusion. The osseous structures are normal. IMPRESSION: Cardiac enlargement with central vascular congestion Dictated by: Dictated on workstation # [id number]
--- NOTE | 2019-02-06 19:46 | ED General ---
General Chief Complaint: General Problems/Pain Stated Complaint: FEVER,NAUSEA Nursing Triage Note: Pt to triage via w/c with c/o fever/chills/nausea x 1 hr. Pt reports a fever of 102 around noon today, took tylenol. Temp is 98.4 on arrival to ED. Pt d/c from hospital on 02/04 with diverticulitis. Pt denies any vomiting today. Pt denies any pain at this time. Nursing Sepsis Screen: No Definite Risk Source of Information: Patient, Old Records Exam Limitations: No Limitations History of Present Illness Date Seen by Provider: Feb 06, 2019 Time Seen by Provider: 18:23 Initial Comments This 63-year-old woman presents to the emergency room tonight with complaints of fever up to 102 at home and very cloudy urine. She has had a complicated health history recently. She is admitted to this facility on January 15 with urinary tract infection and a large stone in the left UPJ. She was later admitted on February 02 with bleeding diverticulitis. After the first admission she was put on Omnicef. She finished antibiotics on February 04. During the first admission she had a stent placed in the left ureter with planned to follow-up with a urologist at [facility] in [place] on February 13. Vital signs are stable on presentation. Patient generally feels ill and is chilled. Allergies and Home Medications Allergies Coded Allergies: No Known Drug Allergies (Unverified , 01/15/19) Home Medications Lisinopril 20 Mg Tablet, 20 MG PO DAILY, (Reported) Naproxen Sodium 220 Mg Tablet, 880 MG PO Q48H, (Reported) TAKES 4 (220MG) TABLETS Turmeric/Turmeric Root Extract 1 Each Capsule, 1 EACH PO DAILY, (Reported) Patient Home Medication List Home Medication List Reviewed: Yes Review of Systems Review of Systems Constitutional: see HPI EENTM: no symptoms reported Respiratory: no symptoms reported Cardiovascular: no symptoms reported Gastrointestinal: see HPI Genitourinary: see HPI : No Musculoskeletal: other (chronic lymphedema of the lower extremities) Skin: no symptoms reported Psychiatric/Neurological: No Symptoms Reported Hematologic/Lymphatic: No Symptoms Reported Immunological/Allergic: no symptoms reported Past Rmrjzlj-Ecksdn-Mflihk Hx Past Med/Social Hx: Reviewed and Corrections made Patient Social History Alcohol Use: Denies Use Recreational Drug Use: No Smoking Status: Current Everyday Smoker Type Used: Cigarettes 2nd Hand Smoke Exposure: No Recent Foreign Travel: No Contact w/Someone Who Travel: No Recent Infectious Disease Expo: No Recent Hopitalizations: Yes (02/01/19 diverticulitis) Physical Abuse: No Sexual Abuse: No Mistreated: No Fear: No Seasonal Allergies Seasonal Allergies: No Past Medical History Surgeries: Yes (stent in kidney, colostomy ) Abdominal, Renal Respiratory: Yes COPD Cardiac: Yes Chronic Edema/Swelling (lymphedema of the lower extremities), Hypertension Neurological: No Genitourinary: Yes (pyelonephritis with sepsis, large left UPJ stone) Gastrointestinal: No Musculoskeletal: No Endocrine: No HEENT: No Cancer: No Psychosocial: No Integumentary: Yes (LYMPHADEMA) Family Medical History Alzheimer's disease 19 MOTHER GRANDMOTHER Cardiovascular disease 19 FATHER Diabetes mellitus G8 SISTER Hypertension 19 FATHER G8 BROTHER Myocardial infarction G8 BROTHER Neoplasm AUNT GRANDMOTHER No Pertinent Family Hx Physical Exam-Suspected Sepsis Physical Exam Vital Signs Vital Signs - First Documented 02/06/19 18:05 Temp 36.9 Pulse 80 Resp 19 B/P (MAP) 178/91 (120) Pulse Ox 98 O2 Delivery Room Air Capillary Refill : Less Than 3 Seconds Blood Pressure Mean: 120 Height, Weight, BMI Height: 5'6.00" Weight: 357lbs. 9.0oz. [id number]; 49.00 BMI Method:Estimated General Appearance: WD/WN, Mild Distress (chilled, uncomfortable), Obese HEENT: PERRL/EOMI, Normal ENT Inspection, Other (oropharynx somewhat dry) Neck: Normal Inspection Respiratory: Lungs Clear, Normal Breath Sounds, No Accessory Muscle Use, No Respiratory Distress Cardiovascular: Regular Rate, Rhythm, No Murmur, Normal Peripheral Pulses, Ot her (chronic large tremulous edema) Gastrointestinal: Non Tender, Soft Extremity: Non Tender, Pedal Edema, Swelling (chronic lower extremity lymphedema) Neurologic/Psychiatric: Alert, Oriented x3, No Motor/Sensory Deficits, Normal Mood/Affect, 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 II-XII Norm as Tested Skin: normal color, warm/dry Focused Exam Lactate Level 02/06/19 18:24: Lactic Acid Level 1.09 Lactic Acid Level Progress/Results/Core Measures Suspected Sepsis Recent Fever Within 48 Hours: No Infection Criteria Present: None New/Unexplained Altered Menta: No Sepsis Screen: No Definite Risk SIRS Temperature: Pulse: 80 Respiratory Rate: 19 Laboratory Tests 02/06/19 18:24: White Blood Count 17.4H Blood Pressure 178 /91 Mean: 120 02/06/19 18:24: Lactic Acid Level 1.09 Laboratory Tests 02/06/19 18:24: Creatinine 0.73, INR Comment 1.0, Platelet Count 306, Total Bilirubin 0.7 Results/Orders Lab Results Laboratory Tests Test 02/06/19 18:24 02/06/19 18:30 Range/Units White Blood Count 17.4 H 4.3-11.0 10^3/uL Red Blood Count 3.86 L 4.35-5.85 10^6/uL Hemoglobin 11.7 11.5-16.0 G/DL Hematocrit 36 35-52 % Mean Corpuscular Volume 94 80-99 FL Mean Corpuscular Hemoglobin 30 25-34 PG Mean Corpuscular Hemoglobin Concent 32 32-36 G/DL Red Cell Distribution Width 16.5 H 10.0-14.5 % Platelet Count 306 130-400 10^3/uL Mean Platelet Volume 10.9 H 7.4-10.4 FL Neutrophils (%) (Auto) 84 H 42-75 % Lymphocytes (%) (Auto) 9 L 12-44 % Monocytes (%) (Auto) 6 0-12 % Eosinophils (%) (Auto) 1 0-10 % Basophils (%) (Auto) 0 0-10 % Neutrophils # (Auto) 14.6 H 1.8-7.8 X 10^3 Lymphocytes # (Auto) 1.6 1.0-4.0 X 10^3 Monocytes # (Auto) 1.0 0.0-1.0 X 10^3 Eosinophils # (Auto) 0.1 0.0-0.3 10^3/uL Basophils # (Auto) 0.1 0.0-0.1 10^3/uL Neutrophils % (Manual) 84 % Lymphocytes % (Manual) 8 % Monocytes % (Manual) 4 % Eosinophils % (Manual) 1 % Band Neutrophils 3 % Poikilocytosis SLIGHT Anisocytosis SLIGHT Microcytosis SLIGHT Macrocytosis SLIGHT Spherocytes SLIGHT Prothrombin Time 13.5 12.2-14.7 SEC INR Comment 1.0 0.8-1.4 Activated Partial Thromboplast Time 29 24-35 SEC Sodium Level 137 135-145 MMOL/L Potassium Level 3.8 3.6-5.0 MMOL/L Chloride Level 103 98-107 MMOL/L Carbon Dioxide Level 25 21-32 MMOL/L Anion Gap 9 5-14 MMOL/L Blood Urea Nitrogen 11 7-18 MG/DL Creatinine 0.73 0.60-1.30 MG/DL Estimat Glomerular Filtration Rate > 60 BUN/Creatinine Ratio 15 Glucose Level 116 H 70-105 MG/DL Lactic Acid Level 1.09 0.50-2.00 MMOL/L Calcium Level 9.1 8.5-10.1 MG/DL Corrected Calcium 9.5 8.5-10.1 MG/DL Total Bilirubin 0.7 0.1-1.0 MG/DL Aspartate Amino Transf (AST/SGOT) 18 5-34 U/L Alanine Aminotransferase (ALT/SGPT) 25 0-55 U/L Alkaline Phosphatase 67 40-136 U/L Total Protein 7.1 6.4-8.2 GM/DL Albumin 3.5 3.2-4.5 GM/DL Amylase Level 27 25-125 U/L Lipase < 4 L 8-78 U/L Urine Color YELLOW Urine Clarity VERY CLOUDY H Urine pH 7 5-9 Urine Specific [place] 1.010 L 1.016-1.022 Urine Protein 3+ H NEGATIVE Urine Glucose (UA) NEGATIVE NEGATIVE Urine Ketones 1+ H NEGATIVE Urine Nitrite POSITIVE H NEGATIVE Urine Bilirubin NEGATIVE NEGATIVE Urine Urobilinogen NORMAL NORMAL MG/DL Urine Leukocyte Esterase 3+ H NEGATIVE Urine RBC (Auto) 5+ H NEGATIVE Urine RBC >100 H /HPF Urine WBC TNTC H /HPF Urine Crystals NONE /LPF Urine Bacteria LARGE H /HPF Urine Casts NONE /LPF Urine Mucus NEGATIVE /LPF Urine Culture Indicated YES Micro Results Microbiology 02/06/19 Influenza Types A,B Antigen (SERGIO) - Final, Complete My Orders Orders - BRITNEY WHITE MD Chest 1 View, Ap/Pa Only (02/06/19 19:13) Ed Iv/Invasive Line Start (02/06/19 19:13) Vital Signs Adult Sepsis Patie Q15M (02/06/19 19:13) O2 (02/06/19 19:13) Remove Rings In Anticipation O (02/06/19 19:13) Ceftriaxone For Iv Use (Rocephin For I (02/06/19 19:30) Vancomycin Injection (Vancomycin Injecti (02/06/19 20:00) Vancomycin Injection (Vancomycin Injecti (02/06/19 19:57) Ns Iv 500 Ml (Sodium Chloride 0.9%) (02/06/19 19:57) Fentanyl Injection (Sublimaze Injection (02/06/19 20:45) Medications Given in ED Current Medications Medications Dose Ordered Sig/Zhang Route Start Time Stop Time Status Last Admin Dose Admin Ceftriaxone Sodium 1000 mg/ Sterile Water 10 ml @ 200 mls/hr ONCE ONCE IV 02/06/19 19:30 02/06/19 19:32 DC 02/06/19 19:35 200 MLS/HR Fentanyl Citrate 50 mcg ONCE ONCE IVP 02/06/19 20:45 02/06/19 20:46 DC 02/06/19 20:38 50 MCG Vital Signs/I&O 02/06/19 20:42 Temp 37.0 Pulse 105 Resp 20 B/P (MAP) 147/78 (120) Pulse Ox 95 O2 Delivery Room Air 02/07/19 00:00 Intake Total 10 ml Balance 10 ml Capillary Refill : Less Than 3 Seconds Blood Pressure Mean: 120 Progress Note : Time: 20:17 Progress Note Chart was thoroughly reviewed. Septic workup was initiated. Based on prior cultures Rocephin was ordered to be given after blood cultures. Urine was remarkable for significant infection. Case was discussed with Dr. Jacques. He recommends transfer to [facility] in [place] as we do not have capacity to do percutaneous or IR therapies at [facility] nor do we have the back upper capability to perform complex urology surgeries. Case was discussed with Dr. Xiao, hospitalist at [facility], he was kind enough to accept transfer of this patient. We decided to add vancomycin for broader spectrum empiric coverage. Patient is stable at this time and has no symptoms requiring symptomatic management. Diagnostic Imaging Diagonstic Imaging: Xray Plain Films/CT/US/NM/MRI: chest Comments NAME: PATY LYONS [employer] REC#: [id number] PT STATUS: REG ER : 1955 PHYSICIAN: BRITNEY WHITE MD ADMIT DATE: 02/06/19/ER Signed Date of Exam: 02/06/19 CHEST 1 VIEW, AP/PA ONLY INDICATION: Wheezing COMPARISON: 02/04/2019 FINDINGS: Single view of the chest demonstrates cardiac enlargement with slight central vascular congestion. There is no pneumothorax or effusion. The osseous structures are normal. IMPRESSION: Cardiac enlargement with central vascular congestion Dictated by: Dictated on workstation # [id number] Dict: 02/06/191926 Trans: 02/06/191943 Interpreted by: AILEEN SWEENEY Electronically signed by: AILEEN SWEENEY 02/06/191943 Departure Impression Primary Impression: Sepsis Qualified Codes: A41.51 - Sepsis due to Escherichia coli [e. coli] Additional Impressions: Pyelonephritis Obstruction of left ureteropelvic junction (UPJ) due to stone Disposition: 02 XFER SHT-TRM HOSP Condition: Improved Transfer Time Spoke to Accepting Phy: 19:40 Transfer Progress Notes Patient to be transferred to [facility] with Dr Xiao accepting. Transfer Time: 20:55 Transfer Facility: [facility] Method of Transfer: EMS Departure-Patient Inst. Referrals: NO,LOCAL PHYSICIAN (PCP/Family) Primary Care Physician Copy Copies To 1: CRISTINA JACQUES MD, JOSHUA T MD Feb 06, 2019 19:46
[2019-02-06] MEDS ORDERED: VANCOMYCIN 1000 MG/VIAL ONE (19:57)
[2019-02-06] MEDS ORDERED: NS IV 500 ML 500 ML ONE (19:57)
[2019-02-06] MEDS ORDERED: VANCOMYCIN INJECTION 2,000 MG in NS IV 500 ML 500 ML IV SCH (20:00)
[2019-02-06 20:42] VITALS: BP 147/78
[2019-02-06] MEDS ORDERED: fentaNYL INJECTION 100 MCG/2 ML AMP IVP ONE (20:45)
== END 2019-02-06 20:55 | disposition short-term general hospital (02) ==
LOC: EDUNIT# 17:52 → ER 17:53
DX: A41.9 Sepsis, unspecified organism (principal); N12 Tubulo-interstitial nephritis, not specified as acute or chronic; N13.5 Crossing vessel and stricture of ureter without hydronephrosis; I10 Essential (primary) hypertension; J44.9 Chronic obstructive pulmonary disease, unspecified; F17.210 Nicotine dependence, cigarettes, uncomplicated; Z96.0 Presence of urogenital implants; Z93.3 Colostomy status; Z82.49 Family history of ischemic heart disease and other diseases of the circulatory system
CPT/HCPCS: 36415; 71045; 80053; 81000; 82150; 83605; 83690; 85007; 85027; 85610; 85730; 87040; 87077; 87088; 87804

== ENCOUNTER 2019-03-25 05:56 | Emergency (ER) | payer MEDICARE, MEDICAID ==
[~2019-03-25] VITALS: Ht 167 cm; Wt 106.0 kg
[2019-03-25] MEDS ORDERED: NS IV 1000 ML 1,000 ML IV SCH ×2 (06:05→07:08)
[2019-03-25 06:13] LABS: BASOPHILS # (AUTO) 0.1 10^3/uL (0.0-0.1); BASOPHILS % (AUTO) 0 % (0-10); EOSINOPHILS % (AUTO) 0 % (0-10); HEMATOCRIT 39 % (35-52); HEMOGLOBIN 12.3 G/DL (11.5-16.0); LYMPHOCYTES # (AUTO) 0.8 X 10^3 (1.0-4.0); LYMPHOCYTES % (AUTO) 4 % (12-44); MEAN CORPUSCULAR HGB CONC 32 G/DL (32-36); MEAN CORPUSCULAR VOLUME 93 FL (80-99); MEAN PLATELET VOLUME 10.2 FL (7.4-10.4); MONOCYTES # (AUTO) 1.2 X 10^3 (0.0-1.0); MONOCYTES % (AUTO) 5 % (0-12); NEUTROPHILS # (AUTO) 19.9 X 10^3 (1.8-7.8); NEUTROPHILS % (AUTO) 91 % (42-75); PLATELET COUNT 282 10^3/uL (130-400)
[2019-03-25] MEDS ORDERED: IBUPROFEN 800 MG (MOTRIN) TAB PO ONE (06:15)
[2019-03-25] MEDS ORDERED: ACETAMINOPHEN 500 MG TAB (TYLENOL) PO ONE (06:15)
[2019-03-25] MEDS ORDERED: cefTRIAXone FOR IV USE 1,000 MG in WATER (STERILE) FOR INJECTION 10 ML IV ONE (06:15)
--- NOTE | 2019-03-25 06:18 | ED General ---
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 PT DENIES NAUSEA OR VOMITING. DENIES PAIN AT THIS TIME. Nursing Sepsis Screen: Possible Severe Sepsis Risk Source of Information: Patient, EMS History of Present Illness Date Seen by Provider: Mar 25, 2019 Time Seen by Provider: 06:00 Initial Comments PT ARRIVES VIA EMS FROM HOME C/O FEVER 101.7 C/O FEELING WEAK AND TIRED STATES SHE HAS BEEN HAVING ONGOING ISSUES WITH KIDNEY STONES FOR THE LAST 2 MONTHS HOSPITALIZED X 2 IN FOR UTI/SEPSIS/KIDNEY STONES HAS LEFT URETERAL STENT PLACED 01/16/19 FINISHED LAST ROUND OF ANTIBIOTICS OVER 2 WEEKS AGO--DOES NOT KNOW WHAT ANTIBIOTIC SHE WAS ON--LATER STATES CIPRO. DENIES ANY URINARY SYMPTOMS HAS NOT TAKEN ANYTHING FOR SYMPTOMS NO NAUSEA/VOMITING/DIARRHEA NO ABDOMINAL PAIN OR FLANK PAIN AT THIS TIME. PCP: DR. BAKER STATES SHE "JUST MOVED HERE 4 YEARS AGO" BUT DID NOT START SEEING A DR UNTIL A COUPLE OF MONTHS AGO. Allergies and Home Medications Allergies Coded Allergies: No Known Drug Allergies (Unverified , 01/15/19) Home Medications Lisinopril 20 Mg Tablet, 20 MG PO DAILY, (Reported) Naproxen Sodium 220 Mg Tablet, 880 MG PO Q48H, (Reported) TAKES 4 (220MG) TABLETS Turmeric/Turmeric Root Extract 1 Each Capsule, 1 EACH PO DAILY, (Reported) Patient Home Medication List Home Medication List Reviewed: Yes Review of Systems Review of Systems Constitutional: see HPI, fever, malaise, weakness EENTM: no symptoms reported Respiratory: no symptoms reported; No cough, No short of breath Cardiovascular: no symptoms reported; No chest pain Gastrointestinal: no symptoms reported; No abdominal pain, No diarrhea, No nausea, No vomiting Genitourinary: see HPI; No decreased output, No dysuria, No frequency, No hesitancy Musculoskeletal: no symptoms reported; No back pain Skin: no symptoms reported Psychiatric/Neurological: No Symptoms Reported; Denies Headache Hematologic/Lymphatic: No Symptoms Reported Immunological/Allergic: no symptoms reported Past Oursxjs-Jcnxdq-Yrvtkl Hx Past Med/Social Hx: Reviewed and Corrections made Patient Social History Alcohol Use: Occasionally Uses Recreational Drug Use: No Smoking Status: Current Everyday Smoker (1 PPD) Type Used: Cigarettes (1 PPD) 2nd Hand Smoke Exposure: No Recent Foreign Travel: No Contact w/Someone Who Travel: No Recent Infectious Disease Expo: No Recent Hopitalizations: Yes (02/01/19 DIVERTICULITIS) Physical Abuse: No Sexual Abuse: No Mistreated: No Fear: No Immunizations Up To Date Tetanus Booster (TDap): Unknown PED Vaccines UTD: Yes Seasonal Allergies Seasonal Allergies: No Past Medical History Surgeries: Yes (CYSTOSCOPIES WITH LEFT URETERAL STENT 01/16/19; HAD ESWL DONE BY DR. 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 CARABALLO AT [facility] 01/2019) Kidney Infection, Bladder Infection, Kidney Stones Gastrointestinal: Yes (COLONOSCOPY 02/03/19 FOR LOWER GI BLEEDING--DIVERTICULITIS) Gastrointestinal Bleed, Diverticulosis, Hemorrhoids Musculoskeletal: No Endocrine: Yes (MORBID OBESITY) HEENT: No Cancer: No Psychosocial: No Integumentary: Yes (LYMPHEDEMA) Blood Disorders: No Family Medical History Alzheimer's disease 19 MOTHER GRANDMOTHER Cardiovascular disease 19 FATHER Diabetes mellitus G8 SISTER Hypertension 19 FATHER G8 BROTHER Myocardial infarction G8 BROTHER Neoplasm AUNT GRANDMOTHER No Pertinent Family Hx Physical Exam Vital Signs Vital Signs - First Documented 03/25/19 05:59 Temp 37.2 Pulse 131 Resp 24 B/P (MAP) 152/65 (94) Pulse Ox 96 O2 Delivery Room Air Capillary Refill : Less Than 3 Seconds Height, Weight, BMI Height: 5'6.00" Weight: 357lbs. 9.0oz. 161.913264pf; 38.00 BMI Method:Estimated General Appearance: No Apparent Distress, WD/WN, Obese, Other (STRONG ODOR OF CIGARETTES) HEENT: PERRL/EOMI, Other (ORAL MUCOSA MOIST) Respiratory: Normal Breath Sounds, No Accessory Muscle Use, No Respiratory Distress Cardiovascular: No JVD, No Murmur, Normal Peripheral Pulses, Tachycardia (130'S) Gastrointestinal: Non Tender, Soft Back: No CVA Tenderness Extremity: Normal Capillary Refill, Non Tender, Pedal Edema (DIFFICULT TO DETERMINE DEGREE OF EDEMA DUE TO OBESITY, HAS CHRONIC VENOUS STASIS CHANGES) Neurologic/Psychiatric: Alert, Oriented x3, No Motor/Sensory Deficits, Normal 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, 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 Norm as Tested Skin: Normal Color, Warm/Dry; No Rash Focused Exam Lactate Level 03/25/19 06:05: Lactic Acid Level 1.39 Lactic Acid Level Progress/Results/Core Measures Suspected Sepsis Recent Fever Within 48 Hours: Yes Infection Criteria Present: Suspected New Infection New/Unexplained Altered Menta: No Sepsis Screen: Possible Severe Sepsis Risk SIRS Temperature: Pulse: 131 Respiratory Rate: 24 Laboratory Tests 03/25/19 06:05: White Blood Count 22.0H Blood Pressure 152 /65 Mean: 94 03/25/19 06:05: Lactic Acid Level 1.39 Laboratory Tests 03/25/19 06:05: Creatinine 0.98, INR Comment 1.1, Platelet Count 282, Total Bilirubin 1.0 Results/Orders Lab Results Laboratory Tests Test 03/25/19 06:05 03/25/19 06:10 Range/Units White Blood Count 22.0 H 4.3-11.0 10^3/uL Red Blood Count 4.17 L 4.35-5.85 10^6/uL Hemoglobin 12.3 11.5-16.0 G/DL Hematocrit 39 35-52 % Mean Corpuscular Volume 93 80-99 FL Mean Corpuscular Hemoglobin 29 25-34 PG Mean Corpuscular Hemoglobin Concent 32 32-36 G/DL Red Cell Distribution Width 16.0 H 10.0-14.5 % Platelet Count 282 130-400 10^3/uL Mean Platelet Volume 10.2 7.4-10.4 FL Neutrophils (%) (Auto) 91 H 42-75 % Lymphocytes (%) (Auto) 4 L 12-44 % Monocytes (%) (Auto) 5 0-12 % Eosinophils (%) (Auto) 0 0-10 % Basophils (%) (Auto) 0 0-10 % Neutrophils # (Auto) 19.9 H 1.8-7.8 X 10^3 Lymphocytes # (Auto) 0.8 L 1.0-4.0 X 10^3 Monocytes # (Auto) 1.2 H 0.0-1.0 X 10^3 Eosinophils # (Auto) 0.0 0.0-0.3 10^3/uL Basophils # (Auto) 0.1 0.0-0.1 10^3/uL Neutrophils % (Manual) 93 % Lymphocytes % (Manual) 4 % Monocytes % (Manual) 3 % Prothrombin Time 15.0 H 12.2-14.7 SEC INR Comment 1.1 0.8-1.4 Activated Partial Thromboplast Time 28 24-35 SEC Sodium Level 136 135-145 MMOL/L Potassium Level 4.0 3.6-5.0 MMOL/L Chloride Level 101 98-107 MMOL/L Carbon Dioxide Level 25 21-32 MMOL/L Anion Gap 10 5-14 MMOL/L Blood Urea Nitrogen 15 7-18 MG/DL Creatinine 0.98 0.60-1.30 MG/DL Estimat Glomerular Filtration Rate 57 BUN/Creatinine Ratio 15 Glucose Level 127 H 70-105 MG/DL Lactic Acid Level 1.39 0.50-2.00 MMOL/L Calcium Level 9.3 8.5-10.1 MG/DL Corrected Calcium 9.8 8.5-10.1 MG/DL Total Bilirubin 1.0 0.1-1.0 MG/DL Aspartate Amino Transf (AST/SGOT) 51 H 5-34 U/L Alanine Aminotransferase (ALT/SGPT) 82 H 0-55 U/L Alkaline Phosphatase 125 40-136 U/L Troponin I < 0.028 <0.028 NG/ML B-Type Natriuretic Peptide 112.8 H <100.0 PG/ML Total Protein 7.2 6.4-8.2 GM/DL Albumin 3.4 3.2-4.5 GM/DL Urine Color YELLOW Urine Clarity SL CLOUDY Urine pH 7.0 5-9 Urine Specific [place] 1.010 L 1.016-1.022 Urine Protein 2+ H NEGATIVE Urine Glucose (UA) NEGATIVE NEGATIVE Urine Ketones NEGATIVE NEGATIVE Urine Nitrite POSITIVE NEGATIVE Urine Bilirubin NEGATIVE NEGATIVE Urine Urobilinogen 0.2 < = 1.0 MG/DL Urine Leukocyte Esterase 1+ H NEGATIVE Urine RBC (Auto) 3+ H NEGATIVE Urine RBC 10-25 H /HPF Urine WBC 5-10 H /HPF Urine Squamous Epithelial Cells 0-2 /HPF Urine Crystals NONE /LPF Urine Bacteria LARGE H /HPF Urine Casts NONE /LPF Urine Mucus NEGATIVE /LPF Urine Culture Indicated CULTURE PENDING My Orders Orders - UMA RODRIGUEZ DO Cbc With Automated Diff (03/25/19 06:05) Comprehensive Metabolic Panel (03/25/19 06:05) Blood Culture (03/25/19 06:05) Sputum Culture (03/25/19 06:05) Urinalysis (03/25/19 06:05) Urine Culture (03/25/19 06:05) Protime With Inr (03/25/19 06:05) Partial Thromboplastin Time (03/25/19 06:05) Chest 1 View, Ap/Pa Only (03/25/19 06:05) Ed Iv/Invasive Line Start (03/25/19 06:05) Ed Iv/Invasive Line Start (03/25/19 06:05) Ekg Tracing (03/25/19 06:05) Vital Signs Adult Sepsis Patie Q15M (03/25/19 06:05) O2 (03/25/19 06:05) Remove Rings In Anticipation O (03/25/19 06:05) Lactic Acid Analyzer (03/25/19 06:05) Ns Iv 1000 Ml (Sodium Chloride 0.9%) (03/25/19 06:05) Acetaminophen Tablet (Tylenol Tablet) (03/25/19 06:15) Ibuprofen Tablet (Motrin Tablet) (03/25/19 06:15) Ceftriaxone For Iv Use (Rocephin For I (03/25/19 06:15) Manual Differential (03/25/19 06:05) Ed Iv/Invasive Line Start (03/25/19 07:08) Ns Iv 1000 Ml (Sodium Chloride 0.9%) (03/25/19 07:08) BNP (03/25/19 07:22) Troponin I (03/25/19 07:22) Albuterol/Ipra Inhalation Soln (Duoneb I (03/25/19 07:30) Dexamethasone Injection (Decadron Inject (03/25/19 07:30) Rt Request For Service (03/25/19 07:22) Methylprednisolone Sod Succ (Solu-Medrol (03/25/19 07:22) Svn Small Volume Nebulizer (03/25/19 07:22) Abdomen/Kub 1view (03/25/19 08:07) Piperacillin Sodium/Tazobactam (Zosyn Vi (03/25/19 08:15) Medications Given in ED Current Medications Medications Dose Ordered Sig/Zhang Route Start Time Stop Time Status Last Admin Dose Admin Albuterol/ Ipratropium 3 ml ONCE ONCE INH 03/25/19 07:30 03/25/19 07:31 DC 03/25/19 07:37 3 ML Dexamethasone Sodium Phosphate 20 mg ONCE ONCE IH 03/25/19 07:30 03/25/19 07:31 DC 03/25/19 07:39 20 MG Piperacillin Sod/ Tazobactam Sod 4.5 gm/Sodium Chloride 100 ml @ 200 mls/hr ONCE ONCE IV 03/25/19 08:15 03/25/19 08:55 DC 03/25/19 09:22 200 MLS/HR Vital Signs/I&O 03/25/19 03/25/19 03/25/19 07:37 07:43 10:55 Temp 35.5 Pulse 98 Resp 20 B/P (MAP) 119/62 Pulse Ox 95 95 97 O2 Delivery Room Air Room Air Capillary Refill : Less Than 3 Seconds Blood Pressure Mean: 94 POS Progress Note : Progress Note PT NOW NOTED TO HAVE AUDIBLE WHEEZING--PT STATES SHE DOES THIS ALL THE TIME--IS SUPPOSED TO USE INHALER DAILY, BUT DOES NOT --STATES IT DOES NOT HELP GIVEN SOLU-MEDROL AND DUO NEB TREATMENT WITH DECREASED WHEEZING AND INCREASED AERATION TEMP DOWN AND HEART RATE DOWN AT TIME OF ADMIT/TRANSFER. PROLONGED ER STAY DUE TO LIMITED BED AVAILABILITY, PT TO BE HELD IN ER UNTIL AFTER MORNING REPORT IS COMPLETED, AND THEN CAN GO UPSTAIRS. 0940--HAVE JUST BEEN INFORMED THAT THERE ARE NOW NO BEDS AVAILABLE ANYWHERE IN HOSPITAL--ON COMPLETE DIVERSION--AND PT WILL NEED TO BE TRANSFERRED. 0941--DISCUSSED WITH DR. BAKER, AND SHE ADVISES TRANSFER. 0950--CALLED [facility], PT PREFERENCE. 0955--SPOKE WITH AUTOMATIC OVEN OPERATOR CYNTHIA, ACCEPTS PT FOR ADMIT TO DR. PAVON, HOSPITALIST. 0955--DR. JACQUES HAS BEEN IN TO SEE PT--HE INFORMS ME THAT PT DID HAVE ESWL BY DR. CARABALLO AT [facility], AFTER LEFT URETERAL STENT WAS PLACED HERE. HE REPORTS THAT PT HAS AN APPOINTMENT WITH HIM ON MONDAY TO HAVE STENT REMOVED. WILL DEFER TO [facility] ON FURTHER RADIOGRAPHICAL STUDIES. ' ECG Initial ECG Impression Date: Mar 25, 2019 Initial ECG Impression Time: 06:24 Initial ECG Rate: 129 Initial ECG Rhythm: S.Tach (RBBB) Initial ECG Comparisson: Unchanged Diagnostic Imaging Comments CXR--MILD CARDIOMEGALY WITH CENTRAL VASCULAR CONGESTION, NO ACUTE INFILTRATE/CONSOLIDATION-PER RADIOLOGIST REPORT AT 0733 Reviewed: Reviewed by Nv Departure Communication (Admissions) 0800--SPOKE WITH DR. BAKER, ACCEPTS PT FOR ADMIT 0805--SPOKE WITH DR. JACQUES FOR UROLOGY CONSULT. ADVISES KUB AND HE WILL SEE IN CONSULT Impression Primary Impression: Sepsis Additional Impressions: Urinary tract infection COPD exacerbation Kidney stones Disposition: XFER SHT-TRM HOSP Condition: Stable Transfer Transfer Reason: Diversion Transfer Facility: [facility] Method of Transfer: EMS Departure-Patient Inst. Referrals: MAGDA LEAHY APRN (PCP) Primary Care Physician UMA RODRIGUEZ DO Mar 25, 2019 06:18 POS
[2019-03-25 06:19] LABS: MEAN CORPUSCULAR HEMOGLOBIN 29 PG (25-34)
[2019-03-25 06:32] LABS: BILIRUBIN,URINE NEGATIVE (NEGATIVE); CLARITY,URINE SL CLOUDY; COLOR,URINE YELLOW; GLUCOSE, URINE (UA) NEGATIVE (NEGATIVE); KETONES,URINE NEGATIVE (NEGATIVE); LEUKOCYTE ESTERASE ,URINE 1+ (NEGATIVE); NITRITE,URINE POSITIVE (NEGATIVE); PROTEIN,URINE 2+ (NEGATIVE)
[2019-03-25 06:38] LABS: INR 1.1 (0.8-1.4)
[2019-03-25 06:48] LABS: BACTERIA,URINE LARGE /HPF; SQUAMOUS EPITHELIAL CELL,UR 0-2 /HPF
[2019-03-25 06:48] LABS: CREATININE SERUM 0.98 MG/DL (0.60-1.30)
[2019-03-25 06:49] LABS: ALBUMIN 3.4 GM/DL (3.2-4.5); CALCIUM 9.3 MG/DL (8.5-10.1); TOTAL PROTEIN 7.2 GM/DL (6.4-8.2)
--- NOTE | 2019-03-25 06:50 | NUR ---
Report recieved from Anson FIGUEREDO.
[2019-03-25 07:06] LABS: LYMPHOCYTES % (MANUAL) 4 %; MONOCYTES % (MANUAL) 3 %; NEUTROPHILS % (MANUAL) 93 %
[2019-03-25] MEDS ORDERED: methylPREDNISolone 125 MG (Solu-MEDROL) VIAL IV STA (07:22)
--- NOTE | 2019-03-25 07:23 | NUR ---
RT notified of Duoneb breathing treatment ordered per Dr. Gaston.
--- NOTE | 2019-03-25 07:26 | Diagnostic Imaging Report ---
INDICATION: Fever, malaise COMPARISON: 02/06/2019 TECHNIQUE: Single frontal radiograph of the chest dated 03/25/2019 FINDINGS: The cardiac silhouette is mildly enlarged. Mild central pulmonary vascular congestion. The lungs are clear of focal pulmonary opacity. No pleural effusion. No pneumothorax. No acute osseous abnormality. IMPRESSION: Mild cardiomegaly with central pulmonary vascular congestion without significant interstitial edema or focal pulmonary consolidation. Dictated by: Dictated on workstation # [id number]
[2019-03-25] MEDS ORDERED: DEXAMETHASONE 4 MG/ML SDV (DECADRON) IH ONE (07:30)
[2019-03-25] MEDS ORDERED: RT-ALBUTEROL/IPRATROPIUM 3 ML (DUONEB) VIAL INH ONE (07:30)
--- NOTE | 2019-03-25 08:13 | NUR ---
Radio Script Writer notified of Med-Surg admit. She advised they have no beds available at this time. She will call back in a little while to notify us if a bed is available.
[2019-03-25] MEDS ORDERED: PIPERACILLIN SODIUM/TAZOBACTAM 4.5 GM in NS (IVPB) 100 ML IV ONE (08:15)
--- NOTE | 2019-03-25 08:36 | Diagnostic Imaging Report ---
Indication: Nephrolithiasis KUB 8:32 AM There is left-sided double-J ureteral stent. Bowel gas pattern is normal. There are destructive changes of the left hip. IMPRESSION: Severe degenerative changes left hip. Left ureteral stent appears to be in appropriate position. Renal calculi can neither be confirmed nor excluded. Dictated by: Dictated on workstation # [id number]
--- NOTE | 2019-03-25 10:39 | NUR ---
Report called to Lizzy FIGUEREDO at [facility].
--- NOTE | 2019-03-25 10:41 | NUR ---
Rajiv with [facility] notified of transfer and [facility] notified. They will have a unit enroute.
[2019-03-25 10:55] VITALS: BP 119/62
--- NOTE | 2019-03-25 11:38 | NUR ---
[facility] arrived and taken to [facility].
--- NOTE | 2019-03-25 13:48 | CONSULTATION REPORT ---
DATE OF SERVICE: 03/25/2019 ATTENDING PHYSICIAN: Dr. Bee. SUMMARY: After reviewing the patient's record in the hospital, this is a 64-year-old morbidly obese patient that was in the hospital early January with urosepsis, left flank pain, bilateral renal stone and a good size stone in the UPJ on the left side causing obstruction. She underwent a stone manipulation and insertion of a double-J stent. Because of her size and inability to visualize the stone well with the ESWL and the weight of the patient when she came to my office for followup and doing well clinically. She was given a good choice to go to or [facility] for possible percutaneous nephrolithotomy or ureteral lithotripsy or ESWL if feasible. She went to the urologist in [facility], apparently underwent ESWL for what I understand from her. She is supposed to see him back on Monday to remove the stent and make sure all the fragments clears up. We will going to admit her today because of sepsis and evaluation of the situation with the stone and fragments; however, hospital on diversion and she needs to be transferred. IMPRESSION: Patient needs admission for sepsis, but since we are on diversion, she will be transferred to [facility], where she can see the urologist as well there. Follow up on her surgery. I was going get a noncontrast CT, but preferably to be done at [facility]. The patient understands everything and agree with the transfer. Job ID: [id number] DocumentID: [id number] Dictated Date: 03/25/2019 11:14:47 Submarine Advisory Team Watch Officer Date: 03/25/2019 13:47:45 Dictated By: CRISTINA JACQUES MD MTDD
== END 2019-03-25 11:38 | disposition short-term general hospital (02) ==
LOC: EDUNIT# 05:56 → ER 05:59
DX: A41.9 Sepsis, unspecified organism (principal); N39.0 Urinary tract infection, site not specified; J44.1 Chronic obstructive pulmonary disease with (acute) exacerbation; N20.0 Calculus of kidney; I10 Essential (primary) hypertension; E66.01 Morbid (severe) obesity due to excess calories; F17.210 Nicotine dependence, cigarettes, uncomplicated; Z82.49 Family history of ischemic heart disease and other diseases of the circulatory system; Z68.38 Body mass index [BMI] 38.0-38.9, adult
CPT/HCPCS: 36415; 71045; 74018; 80053; 81000; 83605; 83880; 84484; 85007; 85027; 85610; 85730; 87040; 87077; 87088; 87186; 93005; 94640

== ENCOUNTER 2022-04-24 11:16 | Emergency (ER) | payer MEDICARE, MEDICAID ==
[~2022-04-24] VITALS: Ht 167 cm; Wt 178.7 kg
[~2022-04-24 11:16] MED LIST changes: +ASPI-1238 PO; -ASPI-983 PO; -LISI-552 PO; +LISI20TA26 PO
[2022-04-24] MEDS ORDERED: morphine INJ 10 MG/ML 1ML (SYR OR VIAL) IM STA (11:26)
--- NOTE | 2022-04-24 11:29 | ED Lower Extremity ---
General Chief Complaint: Trauma-Non Activation Stated Complaint: FALL/LEFT HIP PAIN Nursing Triage Note: ARRIVED VIA EMS FROM HOME AFTER FALLING TRYING TO GET INTO BED. COMPLAINS OF LEFT HIP PAIN. DENIES HITTING HER HEAD OR LOC. History of Present Illness Date Seen by Provider: Apr 24, 2022 Time Seen by Provider: 11:15 Initial Comments Patient is a 67-year-old female who presents to the emergency department via EMS with left hip pain after falling earlier today while trying to get into bed. Patient typically ambulates with a walker and was having some assistance getting back in bed. She reportedly slipped and slid down to the floor. EMS state patient was unable to bear weight upon their arrival. She denies any other pain or injury at this time. Increased pain with any movement of the left hip. Patient is not currently on any anticoagulant medication. Allergies and Home Medications Allergies Coded Allergies: No Known Drug Allergies (Unverified , 01/15/19) Patient Home Medication List Home Medication List Reviewed: Yes Lisinopril (Lisinopril) 20 Mg Tablet, 20 MG PO DAILY, (Reported) Entered as Reported by: EZEKIEL TORRES on 02/04/19 0857 Naproxen Sodium (Aleve) 220 Mg Tablet, 880 MG PO Q48H, (Reported) Entered as Reported by: PAZ IBRAHIM on 01/16/19 1200 Turmeric/Turmeric Root Extract (Turmeric 500 mg Capsule) 1 Each Capsule, 1 EACH PO DAILY, (Reported) Entered as Reported by: EZEKIEL TORRES on 02/04/19 0857 Review of Systems Constitutional: no symptoms reported EENTM: no symptoms reported Respiratory: no symptoms reported Cardiovascular: no symptoms reported Gastrointestinal: no symptoms reported Genitourinary: no symptoms reported Musculoskeletal: see HPI, joint pain Skin: no symptoms reported Psychiatric/Neurological: No Symptoms Reported Past Jiltyib-Nvwnyw-Pkjqpa Hx Patient Social History Smoking Status: Current Everyday Smoker Substance use?: No Alcohol Use?: No Immunizations Up To Date Tetanus Booster (TDap): Unknown PED Vaccines UTD: Yes Seasonal Allergies Seasonal Allergies: No Past Medical History Surgeries: Yes Renal Respiratory: Yes COPD Cardiac: Yes (RBBB) Chronic Edema/Swelling, Hypertension 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 Genitourinary: Yes Kidney Infection, Bladder Infection, Kidney Stones Gastrointestinal: Yes (COLONOSCOPY 09/22/19 FOR LOWER GI BLEEDING--DIVERTICULITIS) Gastrointestinal Bleed, Diverticulosis, Hemorrhoids Musculoskeletal: No Endocrine: Yes (MORBID OBESITY) HEENT: No Cancer: No Psychosocial: No Integumentary: Yes (LYMPHEDEMA) Blood Disorders: No Family Medical History Alzheimer's disease 19 MOTHER GRANDMOTHER Cardiovascular disease 19 FATHER Diabetes mellitus G8 SISTER Hypertension 19 FATHER G8 BROTHER Myocardial infarction G8 BROTHER Neoplasm AUNT GRANDMOTHER No Pertinent Family Hx Physical Exam Vital Signs Vital Signs - First Documented 04/24/22 11:21 Temp 36.6 Pulse 77 Resp 16 B/P (MAP) 167/79 (108) Pulse Ox 96 O2 Delivery Room Air Capillary Refill : Less Than 3 Seconds Height, Weight, BMI Height: 5'6.00" Weight: 357lbs. 9.0oz. 161.098432kd; 64.00 BMI Method:Estimated General Appearance: WD/WN, no apparent distress HEENT: PERRL/EOMI, normal ENT inspection, TMs normal, pharynx normal Neck: non-tender, full range of motion, supple, normal inspection Cardiovascular: regular rate, rhythm Respiratory: chest non-tender, lungs clear, normal breath sounds, no respiratory distress, no accessory muscle use Gastrointestinal: normal bowel sounds, non tender, soft, no organomegaly Back: normal inspection, no vertebral tenderness Hips: left hip limited range of motion, left hip pain Neurologic/Psychiatric: no motor/sensory deficits, alert, normal mood/affect, oriented x 3 Skin: normal color, warm/dry Progress/Results/Core Measures Results/Orders Lab Results Laboratory Tests Test 04/24/22 12:28 Range/Units White Blood Count 15.6 H 4.3-11.0 10^3/uL Red Blood Count 4.18 3.80-5.11 10^6/uL Hemoglobin 13.0 11.5-16.0 g/dL Hematocrit 42 35-52 % Mean Corpuscular Volume 101 H 80-99 fL Mean Corpuscular Hemoglobin 31 25-34 pg Mean Corpuscular Hemoglobin Concent 31 L 32-36 g/dL Red Cell Distribution Width 13.6 10.0-14.5 % Platelet Count 285 130-400 10^3/uL Mean Platelet Volume 10.1 9.0-12.2 fL Immature Granulocyte % (Auto) 1 % Neutrophils (%) (Auto) 85 H 42-75 % Lymphocytes (%) (Auto) 9 L 12-44 % Monocytes (%) (Auto) 4 0-12 % Eosinophils (%) (Auto) 1 0-10 % Basophils (%) (Auto) 1 0-10 % Neutrophils # (Auto) 13.2 H 1.8-7.8 10^3/uL Lymphocytes # (Auto) 1.4 1.0-4.0 10^3/uL Monocytes # (Auto) 0.6 0.0-1.0 10^3/uL Eosinophils # (Auto) 0.1 0.0-0.3 10^3/uL Basophils # (Auto) 0.1 0.0-0.1 10^3/uL Immature Granulocyte # (Auto) 0.1 0.0-0.1 10^3/uL My Orders Orders - YOUSIFMARICHUYLIDIA PHYSICAL THERAPIST CLINIC DIRECTOR Pelvis With Left Hip 2-3 Views (04/24/22 11:23) Morphine Injection (Morphine Injection (04/24/22 11:26) Chest 1 View, Ap/Pa Only (04/24/22 11:43) Iv/Invasive Line Insertion .IV INSERT (04/24/22 11:43) Cbc With Automated Diff (04/24/22 11:43) Comprehensive Metabolic Panel (04/24/22 11:43) Protime With Inr (04/24/22 11:43) Partial Thromboplastin Time (04/24/22 11:43) Manual Differential (04/24/22 12:28) Vital Signs/I&O 04/24/22 11:21 Temp 36.6 Pulse 77 Resp 16 B/P (MAP) 167/79 (108) Pulse Ox 96 O2 Delivery Room Air Blood Pressure Mean: 108 Progress Progress Note : Progress Note Patient is nontoxic and well-hydrated on exam. No marked external rotation or shortening of the left lower extremity noted. Patient does note provocation of severe pain with any movement of the left hip. No significant tenderness to palpation about the left hip. X-rays of the left hip notable for significant proximal femoral fracture. We do not have orthopedic coverage today and thus transfer is indicated. I spoke with [facility] who kindly excepted the patient in transfer. I spoke with the on-call orthopedist, Dr. Richard, as well as the emergency room physician, Dr. Veer. They both kindly agreed to see the patient. I informed both the patient and her daughter of the need to transfer due to lack of appropriate coverage at this facility. They verbalized agreement. A chest x-ray and preoperative labs were drawn and are pending. A Fragoso catheter was placed by nursing. Departure Impression Primary Impression: Fracture of proximal end of left femur Qualified Codes: S72.002A - Fracture of unspecified part of neck of left femur, initial encounter for closed fracture Disposition: XFER SHT-TRM HOSP Condition: Stable Transfer Transfer Reason: Exceeds level of care Time Spoke to Accepting Phy: 12:30 Transfer Progress Notes Transfer indicated due to lack of orthopedic coverage at this time Transfer Facility: [facility] Method of Transfer: EMS Departure-Patient Inst. Referrals: MAGDA LEAHY (PCP) Primary Care Physician LIDIA YOUSIF APRN Apr 24, 2022 11:29
--- NOTE | 2022-04-24 11:50 | Diagnostic Imaging Report ---
INDICATION: Fall. Left hip pain. COMPARISON: 03/25/2019. FINDINGS: There is stable enlargement of the cardiac silhouette without current evidence of edema or failure. There is some chronic interstitial changes present in the lungs but no findings to suggest pneumonia. There is no effusion. There is no pneumothorax. There is no acute thoracic osseous abnormality. IMPRESSION: Stable appearance of the chest. No acute cardiopulmonary process demonstrated. Dictated by: Dictated on workstation # [id number]
--- NOTE | 2022-04-24 11:54 | Diagnostic Imaging Report ---
INDICATION: Left hip pain. Fall. FINDINGS: There are severe arthritic changes present about the left hip with thinning of the acetabulum, compatible with a developing protrusio. There is an acute fracture of the proximal left femur. The fracture lines appear at the level of the lesser trochanter. There is also disruption of the lateral cortex along the inferior margins of the greater trochanter. Additional obliquely oriented fracture lines are present within the proximal left femoral shaft. The findings are compatible with an intertrochanteric fracture without significant displacement. The right hip demonstrates more moderate osteoarthritic changes without acute abnormality. The pelvic ring is intact. There is no pelvic diastasis. IMPRESSION: 1. Acute appearing left femoral fracture. This is not a simple intratrochanteric fracture. Fracture lines are at the level of the lesser trochanter and at the base of the greater trochanter. There also, however, are obliquely oriented fractures present within the proximal aspect of the left femoral shaft. This is superimposed on a background of severe left hip osteoarthritic change with marked thinning of the bone stock of the left acetabulum. 2. No acute process is evident at the left hip. Dictated by: Dictated on workstation # [id number]
[2022-04-24 12:33] LABS: BASOPHILS # (AUTO) 0.1 10^3/uL (0.0-0.1); BASOPHILS % (AUTO) 1 % (0-10); EOSINOPHILS # (AUTO) 0.1 10^3/uL (0.0-0.3); EOSINOPHILS % (AUTO) 1 % (0-10); HEMATOCRIT 42 % (35-52); LYMPHOCYTES # (AUTO) 1.4 10^3/uL (1.0-4.0); LYMPHOCYTES % (AUTO) 9 % (12-44); MEAN CORPUSCULAR HEMOGLOBIN 31 pg (25-34); MEAN CORPUSCULAR HGB CONC 31 g/dL (32-36); MEAN CORPUSCULAR VOLUME 101 fL (80-99); MEAN PLATELET VOLUME 10.1 fL (9.0-12.2); MONOCYTES # (AUTO) 0.6 10^3/uL (0.0-1.0); MONOCYTES % (AUTO) 4 % (0-12); NEUTROPHILS # (AUTO) 13.2 10^3/uL (1.8-7.8); NEUTROPHILS % (AUTO) 85 % (42-75); PLATELET COUNT 285 10^3/uL (130-400); WHITE BLOOD COUNT 15.6 10^3/uL (4.3-11.0)
[2022-04-24 12:45] LABS: INR 0.9 (0.8-1.4); PROTHROMBIN TIME PATIENT 12.7 SEC (12.2-14.7)
[2022-04-24 12:52] LABS: ALBUMIN 3.5 GM/DL (3.2-4.5); BILIRUBIN,TOTAL 0.3 MG/DL (0.1-1.0); CALCIUM 9.6 MG/DL (8.5-10.1); CREATININE SERUM 1.1 MG/DL (0.60-1.30); POTASSIUM 4.2 MMOL/L (3.6-5.0); TOTAL PROTEIN 7.1 GM/DL (6.4-8.2)
[2022-04-24] MEDS ORDERED: NS IV 1000 ML 1,000 ML IV SCH (13:00)
[2022-04-24 13:12] LABS: BAND NEUTROPHILS 3 %; BASOPHILS % (MANUAL) 0 %; EOSINOPHILS % (MANUAL) 2 %; LYMPHOCYTES % (MANUAL) 7 %; MONOCYTES % (MANUAL) 5 %; NEUTROPHILS % (MANUAL) 83 %; RBC MORPH NORMAL
[2022-04-24 13:54] VITALS: BP 149/89
== END 2022-04-24 13:55 | disposition short-term general hospital (02) ==
LOC: EDUNIT# 11:16 → ER 11:18
DX: S72.002A Fracture of unspecified part of neck of left femur, initial encounter for closed fracture (principal); E66.01 Morbid (severe) obesity due to excess calories; F17.200 Nicotine dependence, unspecified, uncomplicated; Z68.44 Body mass index [BMI] 60.0-69.9, adult; Z28.310 Unvaccinated for COVID-19; W01.0XXA Fall on same level from slipping, tripping and stumbling without subsequent striking against object, initial encounter
CPT/HCPCS: 36415; 51702; 71045; 80053; 85007; 85027; 85610; 85730